=== PATIENT | female | born 1945 | race Hispanic/Latino ===

== ENCOUNTER → 2022-12-17 | Outpatient (CLI) | payer OTHER | END | disposition home or self-care (01) | LOC: RAH 12:57 | PROVIDERS: ATTEND Family Medicine | DX: R13.10 Dysphagia, unspecified (principal); R63.30 Feeding difficulties, unspecified | CPT/HCPCS: 74230; 92611 ==

== ENCOUNTER 2025-02-26 09:48 | Inpatient (IN) | payer MEDICARE, OTHER ==
[~2025-02-26] VITALS: Ht 160 cm; Wt 55.3 kg
[~2025-02-26 09:48] MED LIST: ASPI-1005 PO; ATOR40TA69 PO; BREX2TAB PO; CYAN-52 PO; MELA10CA11 PO; MIRT-22 PO; RIVA4.6T TP
--- NOTE | 2025-02-26 10:09 | ERN ---
ED Note History of Present Illness Stated Complaint: GENERAL WEAKNESS W/DIZZINESS AND LOSS OF APETITE. Chief Complaint: Weakness Time Seen by MD: 10:02 Dictation: PATIENT IS A 79-YEAR-OLD FEMALE COMING IN VIA EMS FROM HOME WITH COMPLAINTS OF PER THE DAUGHTER BEING CLAMMY AND GENERALIZED WEAKNESS APPROXIMATELY 1 HOUR PRIOR TO ARRIVAL. WHEN EMS ARRIVED THEY STATE THAT SHE WAS A LITTLE BIT ON THE SOMNOLENT SIDE CURRENTLY SHE IS TAKING SEROQUEL 25 MG P[address]O. FOR ALZHEIMER'S AND DAUGHTER SAID SHE GETS THIS WAY SOMETIMES. SHE HAS A HISTORY HAS A HISTORY OF BREAST CA. AT THIS TIME, SHE IS ALERT AND ORIENTED TIMES 2-3 ANSWERS QUESTIONS APPROPRIATELY OFFERS NO COMPLAINTS AT THIS TIME. STATES SHE WOULD JUST LIKE HER CHECKED OUT. Allergies: Coded Allergies: No Known Allergies (Unverified Allergy, Unknown, 02/05/24) No Known Drug Allergies (Unverified Allergy, Unknown, 02/05/24) Home Meds Active Scripts Atorvastatin Calcium (LIPITOR) 40 Mg Tablet, 40 MG PO HS, #30 TAB Prov:CARA GOMEZ BUSINESS MANAGEMENT CONSULTANT 02/07/24 Aspirin (ASPIRIN 81MG CHEW TAB) 81 Mg Tab.chew, 81 MG PO DAILY, #30 TAB.CHEW Prov:CARA GOMEZ BUSINESS MANAGEMENT CONSULTANT 02/07/24 Reported Medications Rivastigmine (Exelon 4.6 mg/24 Hr) 4.6 Mg/24 Hour Patch, 1 PATCH TP DAILYDINNER PRN for ANXIETY for 30 Days, #30 PATCH 0 Refills 02/07/24 Melatonin (Melatonin) 10 Mg Capsule, 1 CAP PO HS for sleep for 30 Days, #30 CAP 0 Refills 02/05/24 Brexpiprazole (Rexulti) 2 Mg Tablet, 1 TAB PO DAILY for 30 Days, #30 TAB 0 Refills 02/05/24 Cyanocobalamin (Vitamin B-12) (Vitamin B-12) 1,000 Mcg Tablet, 1 TAB PO DAILY for 30 Days, #30 TAB 0 Refills 02/05/24 Mirtazapine (Mirtazapine) 15 Mg Tablet, 1 TAB PO HS for 30 Days, #30 TAB 0 Refills 02/05/24 Past Medical History Past Medical History: Cancer, Dementia Additional Past Medical Hx: BREAST CA, ALZHEIMERS Surgical History: History: Not Applicable RN Note Reviewed/Agreed w/PFSH: Yes Review of System Dictation CONSTITUTIONAL: NEGATIVE EXCEPT FOR HPI GB W HEAD/FACE: NEGATIVE EXCEPT FOR HPI EENT: NEGATIVE EXCEPT FOR HPI RESPIRATORY: NEGATIVE EXCEPT FOR HPI GASTROINTESTINAL/ABDOMINAL: NEGATIVE EXCEPT FOR HPI GENITOURINARY: NEGATIVE EXCEPT FOR HPI MUSCULOSKELETAL: NEGATIVE EXCEPT FOR HPI INTEGUMENTARY: NEGATIVE EXCEPT FOR HPI NEUROLOGICAL/PSYCH: NEGATIVE EXCEPT FOR HPI HEMATOLOGIC/LYMPHATIC: NEGATIVE EXCEPT FOR HPI ALL SYSTEMS NEGATIVE, EXCEPT NOTED ABOVE. 13 POINT REVIEW OF SYSTEMS ASSESSED AND ALL NEGATIVE EXCEPT FOR ABOVE. Initial Vital Sign VS Vital Signs Date Time Temp Pulse Resp B/P (MAP) Pulse Ox O2 Delivery O2 Flow Rate FiO2 02/26/25 09:50 97.9 62 18 116/50 100 Nasal Cannula 3.0 02/26/25 10:16 21 Physical Exam Dictation VITAL SIGNS REVIEWED GENERAL APPEARANCE: ALERT, ORIENTED X 223, ANSWERING QUESTIONS APPROPRIATELY. SHE IS ALERT, MOVING ALL EXTREMITIES HEAD AND FACE: NON-TRAUMATIC. EYES: PERRL, PINK CONJUNCTIVAS, EYELID NO TRAUMA, ANTERIOR CHAMBER WITH ARCUS SENILIS. EARS: PINNAS INTACT AND NO SIGNS OF TRAUMA OR ERYTHEMA EAR CANALS CLEAR AND NO DISCHARGE TM NO ERYTHEMA NOSE: NO DISCHARGE, NO BLEEDING. OROPHARYNX: MOUTH NORMAL, TONGUE PINK, PHARYNX CLEAR,NO ERYTHEMA, TONSILS NO EXUDATES, NO ABSCESSES NOTED, MUCOUS MEMBRANE MOIST NECK: SUPPLE, NON-TENDER, NO THYROMEGALY, NO MASSES, NO JVD, NO BRUITS BREAST:DEFERRED CHEST:NO TENDERNESS, NO CREPITUS, NO PARADOXICAL MOVEMENT, NO RETRACTIONS LUNGS:CLEAR, WELL-VENTILATED, SYMMETRIC, NO RALES, NO WHEEZING, NO RHONCHI, NO STRIDOR, GOOD BREATH SOUNDS BILATERALLY HEART: REGULAR RATE, REGULAR RHYTHM, NO MURMUR, NO GALLOPS VASCULAR: NO PERIPHERAL EDEMA, ABDOMEN: SOFT, POSITIVE BOWEL SOUNDS, NONDISTENDED, NO GUARDING, NONTENDER, NO REBOUND, NO MASSES NO HEPATOMEGALY, NO SPLENOMEGALY, NO CRUZ'S SIGN, NO HERNIAS. RECTAL: DEFERRED GENITAL: DEFERRED NEUROLOGICAL: NORMAL SPEECH, MOTOR FUNCTION INTACT, SENSORY FUNCTION INTACT MUSCULOSKELETAL: NECK NONTENDER, FULL RANGE OF MOTION, BACK NONTENDER, FULL RANGE OF MOTION, EXTREMITIES: NONTENDER, FULL RANGE OF MOTION SKIN: COLOR PINK, DRY, NO TURGOR, NO RASH, NO LACERATIONS, NO ABRASIONS, NO CONTUSIONS. LYMPHATIC: DEFERRED Results (Laboratory/Radiology) Laboratory/Radiology Laboratory Tests Test 02/26/25 10:22 02/26/25 12:39 White Blood Count 6.4 K/uL (4.8-10.8) Red Blood Count 4.13 MIL/uL (4.00-5.50) Hemoglobin 12.3 g/dL (12.0-16.0) Hematocrit 39.8 % (36-48) Mean Corpuscular Volume 96.4 fL (79-99) Mean Corpuscular Hemoglobin 29.8 pg (27.0-33.0) Mean Corpuscular Hemoglobin Concent 30.9 g/dL (32.0-36.0) L Red Cell Distribution Width 13.1 % (11.0-15.5) Platelet Count 283 K/uL (130-400) Mean Platelet Volume 9.3 fL (7.5-10.5) Immature Granulocyte % (Auto) 0.5 % (0-1) Neutrophils (%) (Auto) 78.3 % (40.0-77.0) H Lymphocytes (%) (Auto) 13.2 % (21.0-51.0) L Monocytes (%) (Auto) 6.9 % (3.0-13.0) Eosinophils (%) (Auto) 0.8 % (0.0-8.0) Basophils (%) (Auto) 0.3 % (0.0-5.0) Neutrophils # (Auto) 5.0 K/uL (1.8-7.7) Lymphocytes # (Auto) 0.8 K/uL (1.0-4.8) L Monocytes # (Auto) 0.4 K/uL (0.1-1.0) Eosinophils # (Auto) 0.05 K/uL (0.00-0.70) Basophils # (Auto) 0.02 K/uL (0.00-0.20) Absolute Immature Granulocyte (auto 0.03 K/uL (0-1) Nucleated Red Blood Cells 0.0 % (0.0-0.19) Red Blood Cell Morphology See comments Sodium Level 140 mmol/L (136-145) Potassium Level 3.7 mmol/L (3.5-5.1) Chloride Level 106 mmol/L (101-111) Carbon Dioxide Level 28 mmol/L (21-32) Blood Urea Nitrogen 13 mg/dL (7-18) Creatinine 0.9 mg/dL (0.5-1.0) Glomerular Filtration Rate Calc 65 mL/min (>90) Random Glucose 87 mg/dL (70-105) Total Calcium 8.5 mg/dL (8.5-10.1) Magnesium Level 1.90 mg/dL (1.80-2.40) Troponin I High Sensitivity 365 ng/L (4-50) *H Urine Color LIGHT-YELLOW (YELLOW) Urine Appearance CLOUDY (CLEAR) H Urine pH 6.0 (5.0-8.0) Urine Specific [place] 1.010 (1.001-1.031) Urine Protein NEGATIVE mg/dL (NEGATIVE) Urine Glucose (UA) NEGATIVE mg/dL (NEGATIVE) Urine Ketones NEGATIVE mg/dL (NEGATIVE) Urine Occult Blood NEGATIVE (NEGATIVE) Urine Nitrate NEGATIVE (NEGATIVE) Urine Bilirubin NEGATIVE mg/dL (NEGATIVE) Urine Urobilinogen 0.2 mg/dL (0.2-1.0) Urine Leukocyte Esterase 500 [place]/uL (NEGATIVE) H 1030/CHEST X-RAY CLEAR NEGATIVE Labs Reviewed?: Yes EKG Comment: 1031/EKG SINUS RHYTHM/HEART RATE 62/OCCASIONAL PACS WITH A RIGHT BUNDLE BRANCH BLOCK. MINIMAL ST SEGMENT ELEVATION LATERAL LEADS. NO CHANGE FROM EKG ON 02/05/2024 ED Course ED Course Orders Procedure Category Date Status Time Cbc With Differential LAB 02/26/25 Complete 10:07 Chest 1vw RAD 02/26/25 Resulted 10:07 12 Lead Ekg Tracing- EKG 02/26/25 Logged Technical 10:07 Magnesium LAB 02/26/25 Complete 10:07 Troponin I High LAB 02/26/25 Complete Sensitivity 10:07 Urinalysis Profile LAB 02/26/25 In Process 10:07 Basic Metabolic Panel LAB 02/26/25 Complete 10:07 Culture Urine PETE 02/26/25 Logged 13:32 Vital Signs Date Time Temp Pulse Resp B/P (MAP) Pulse Ox O2 Delivery O2 Flow Rate FiO2 02/26/25 10:16 98.1 66 20 125/55 97 Room Air* 0 21 02/26/25 09:50 97.9 62 18 116/50 100 Nasal Cannula 3.0 1320/PATIENT REMAINS HEMODYNAMICALLY STABLE. SPOKE WITH DAUGHTER AT BEDSIDE SHE IS AWARE PATIENT WILL BE PUT IN FOR HIGH-RISK CHEST PAIN WITH A AN ELEVATED TROPONIN NO CHANGES ON EKG. PATIENT STATES SHE FEELS FINE.1335/ 1335/SPOKE WITHRIGOBERTO LINK AND REVIEWED LABS EKG AND SHE AGREED TO ADMIT. HEART Score Response (Comments) Value EKG: Repolarization changes 1 Age: > 65yrs (+2) 2 Risk Factors: 1-2 risk factors (+1) 1 Initial Troponin: >3x Normal Limit (+2) 2 Total 6 Medical Decision Making MDM MDM: DIFFERENTIAL DIAGNOSIS: ACS/AMI/ELECTROLYTE IMBALANCE DEHYDRATION/PNEUMONIA/BRONCHITIS RATIONALE: TESTS CONSIDERED AND ORDERED SECONDARY TO SHARED DECISION MAKING INCLUDE: LABS, ECG AND RADIOLOGY PREVIOUS OUTSIDE RECORDS REVIEWED: OLD ER VISITS. RISK OF COMPLICATION AND/OR MORBIDITY OR MORTALITY OF PATIENT MANAGEMENT: NONE MEDICATIONS-PER MEDICATION RECONCILIATION NEED FOR HOSPITALIZATION: PATIENT DOES MEET CRITERIA FOR HOSPITALIZATION. PATIENT WILL BE ADMITTED FOR HIGH-RISK CHEST PAIN AND ELEVATED TROPONIN. HE SHE WILL NEED CARDIAC ENZYMES AND EKG SERIALLY. NEED FOR EMERGENCY MAJOR/MINOR SURGERY: NO THERE ARE NO SOCIAL CONCERNS WITH THIS PATIENT. PRESCRIPTION DRUG MANAGEMENT PRESCRIPTIONS WILL INCLUDE SYMPTOMATIC CARE PATIENT'S PRIOR EXTERNAL MEDICAL RECORDS FROM OTHER ER VISITS WERE REVIEWED BY ME INDICATED. PRIOR TESTING AND RESULTS FROM PREVIOUS VISITS WERE REVIEWED. PRIOR TESTS WERE TAKEN INTO ACCOUNT WITH MEDICAL DECISION MAKING AND RESOURCE UTILIZATION, INDEPENDENT HISTORIAN/HISTORIANS WERE USED TO OBTAIN COMPLETE MEDICAL HISTORY. I INDEPENDENTLY INTERPRETED THE TEST THAT WERE PERFORMED, RESULTS WERE REVIEWED BY ME AND CONSIDERED FINDINGS ON RADIOLOGY IF ORDERED. MEDICAL MANAGEMENT AND EXAMINATION INTERPRETATION DISCUSSIONS WERE HAD BY ME W ITH OTHER QUALIFIED HEALTHCARE PROFESSIONALS INDICATED FOR THE PATIENT'S CARE. DX & DISP Disposition: Inpatient Departure Condition: Stable Referrals: SHAINA CAMERON M.D. (PCP) Time of Disposition: 13:22 I have reviewed the case, and I agree with, Diagnosis and Plan ANAYELI KUO Feb 26, 2025 10:09
[2025-02-26 10:37] LABS: IMMATURE GRANULOCYTE ABSOLUTE 0.03 K/uL (0-1); NUCLEATED RED BLOOD CELLS 0.0 % (0.0-0.19); PLATELET COUNT (AUTO) 283 K/uL (130-400); RED BLOOD CELL COUNT(AUTO) 4.13 MIL/uL (4.00-5.50); RED CELL DISTRIBUTION WIDTH 13.1 % (11.0-15.5); WHITE BLOOD COUNT (AUTO) 6.4 K/uL (4.8-10.8)
[2025-02-26 10:46] LABS: CREATININE 0.9 mg/dL (0.5-1.0); GLOMERULAR FILTR. RATE CALC 65.0 mL/min (>90); GLUCOSE,RANDOM 87.0 mg/dL (70-105); SODIUM SERUM 140.0 mmol/L (136-145); UREA NITROGEN, BLOOD 13.0 mg/dL (7-18)
--- NOTE | 2025-02-26 11:16 | HMCIMG ---
EXAM: CR Chest, 1 View. CLINICAL HISTORY: SHORTNESS A BREATH COMPARISON: None provided. FINDINGS: LUNGS: There is no mass, infiltrate, or acute pulmonary abnormality. PLEURAL SPACES: No pleural effusion or pneumothorax. MEDIASTINUM: Cardiac size and mediastinal contours within normal limits. BONES: No aggressive appearing osseous lesion seen. IMPRESSION: No acute cardiopulmonary pathology is evident. /[place]
[2025-02-26 13:23] LABS: APPEARANCE,URINE CLOUDY (CLEAR); GLUCOSE, URINE (UA) NEGATIVE (NEGATIVE); LEUKOCYTE ESTERASE ,URINE 500 Leu/uL (NEGATIVE); NITRATE,URINE NEGATIVE (NEGATIVE); OCCULT BLOOD,URINE NEGATIVE (NEGATIVE)
[2025-02-26 13:32] LABS: ADD UA MICROSCOPIC YES
[2025-02-26 13:39] LABS: SQUAMOUS EPITHELIAL CELL,UR RARE /HPF (0-2)
--- NOTE | 2025-02-26 13:45 | NUR ---
PT FAMILY MEMBER CAME UP TO ME TO NURSES STATION TO TELL ME THE PT WILL BE NEEDING A SITTER DUE TO HER DEMENTIA AND HER MEDICATIONS WELL. I ASKED "DO YOU HAVE A LIST OF HER MEDICATIONS" WHEN FAMILY MEMBER STATED SHE GAVE THE LIST OF HER MEDICATIONS TO "THE LADY." I ASKED WHAT LADY AND WAS NOT ABLE TO GET A STRAIGHT ANSWER. AT THIS TIME, PT HAD GOTTEN UP FROM BED TO LEAVE FACILITY AND STATING "I WANT TO GO HOME." THIS IS WHEN I HAD TOLD THE FAMILY MEMBER, "WE CANNOT KEEP HER HERE AGAINST HER WILL." WHEN TRYING TO ASSESS PT IF THEY ARE A&O, PT IS ABLE TO TELL ME HER NAME AND AND WHERE SHE IS AT.
--- NOTE | 2025-02-26 14:36 | EKG ---
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
--- NOTE | 2025-02-26 14:52 | NUR ---
CHARGE NURSE AND CONCESSION STAND ATTENDANT AWARE OF SITUATION AT THIS TIME.
--- NOTE | 2025-02-26 15:31 | HP ---
[facility] HISTORY & PHYSICAL Date Patient Seen: Feb 26, 2025 Time of Visit: 15:21 Supervising Physician: Verito Gusman MD Primary Care Physician: Nikki Bucio MD Outpatient Specialists: none Inpatient Consults: Tammy Ceedno (Cardiology) PROBLEM LIST: syncope NSTEMI Vertigo Acute complicated cystitis Dementia HPI: THis is a79yr old female with past medical HX pertinent for dementia who presented to the ED for evaluation of syncope. Per pts daughter pt has been having periods of dizziness in the last 2 weeks 2 major episodes. This morning pts daughter reports Mrs Garcia had her am meds which included 1 Seroquel 25mg po and shortly after that she complained of some dizziness. Then daughter reports she found her slumped over and passed out. Daughter also reports pt was clammy and diaphoretic. This prompted her to bring her to the ED for evaluation. Pt hemodynamically stable. afebrile and saturating 97% at RA. Neutrophils 78.3, chemistry with troponin of 365 CK 185. CHest XR: No acute cardiopulmonary pathology is evident. On assessment pt is awake alert pleasantly confused. Pt denies chest pain, palpitations or SOB. PAST MEDICAL HX: see above PAST SURGICAL HX: noncontributory SOCIAL HISTORY: No tobacco, ETOH, or illicit drug use Coded Allergies: No Known Allergies (Unverified Allergy, Unknown, 02/05/24) No Known Drug Allergies (Unverified Allergy, Unknown, 02/05/24) REVIEW OF SYSTEMS: 12 point ROS reviewed with patient. Pertinent positives mentioned above. Otherwise negative. PHYSICAL EXAM: GENERAL: alert, weak, awake oriented x 3 HEENT: EOMI, Sclera non icteric, moist mucosa NECK: Supple, no JVD, trachea midline LUNGS: Clear breath sounds bilaterally. No wheezes HEART: Regular rate and rhythm. Normal S1 and S2, without murmurs ABD: Abdomen soft, nontender. Bowel sounds present EXT: No clubbing cyanosis or edema NEURO: Alert and oriented to person, follows commands Vital Signs (last 8hr) Date Time Temp Pulse Resp B/P (MAP) Pulse Ox O2 Delivery O2 Flow Rate FiO2 02/26/25 10:16 98.1 66 20 125/55 97 Room Air* 0 21 02/26/25 09:50 97.9 62 18 116/50 100 Nasal Cannula 3.0 LABS: Hematology Labs: Test 02/26/25 10:22 Range/Units White Blood Count 6.4 4.8-10.8 K/uL Red Blood Count 4.13 4.00-5.50 MIL/uL Hemoglobin 12.3 12.0-16.0 g/dL Hematocrit 39.8 36-48 % Mean Corpuscular Volume 96.4 79-99 fL Mean Corpuscular Hemoglobin 29.8 27.0-33.0 pg Mean Corpuscular Hemoglobin Concent 30.9 L 32.0-36.0 g/dL Red Cell Distribution Width 13.1 11.0-15.5 % Platelet Count 283 130-400 K/uL Mean Platelet Volume 9.3 7.5-10.5 fL Immature Granulocyte % (Auto) 0.5 0-1 % Neutrophils (%) (Auto) 78.3 H 40.0-77.0 % Lymphocytes (%) (Auto) 13.2 L 21.0-51.0 % Monocytes (%) (Auto) 6.9 3.0-13.0 % Eosinophils (%) (Auto) 0.8 0.0-8.0 % Basophils (%) (Auto) 0.3 0.0-5.0 % Neutrophils # (Auto) 5.0 1.8-7.7 K/uL Lymphocytes # (Auto) 0.8 L 1.0-4.8 K/uL Monocytes # (Auto) 0.4 0.1-1.0 K/uL Eosinophils # (Auto) 0.05 0.00-0.70 K/uL Basophils # (Auto) 0.02 0.00-0.20 K/uL Absolute Immature Granulocyte (auto 0.03 0-1 K/uL Nucleated Red Blood Cells 0.0 0.0-0.19 % Red Blood Cell Morphology See comments Chemistry Labs: Test 02/26/25 10:22 Range/Units Sodium Level 140 136-145 mmol/L Potassium Level 3.7 3.5-5.1 mmol/L Chloride Level 106 101-111 mmol/L Carbon Dioxide Level 28 21-32 mmol/L Blood Urea Nitrogen 13 7-18 mg/dL Creatinine 0.9 0.5-1.0 mg/dL Glomerular Filtration Rate Calc 65 >90 mL/min Random Glucose 87 70-105 mg/dL Total Calcium 8.5 8.5-10.1 mg/dL Magnesium Level 1.90 1.80-2.40 mg/dL Troponin I High Sensitivity 365 *H 4-50 ng/L DIAGNOSTICS / RADIOLOGY RESULTS: [facility] [address] [place] [address] IMAGING REPORT Signed PATIENT: JACEK GARCIA MR#: [id number] : 1945 SEX: F AGE: 79 LOCATION: [facility] ORDER 1009 STATUS: REG ER REPORT#: [id number] SERVICE 1007 REASON: SHORTNESS A BREATH ORDERING PHYSICIAN: ANAYELI KUO PROCEDURE: CXR1VW - CHEST 1VW EXAM: CR Chest, 1 View. CLINICAL HISTORY: SHORTNESS A BREATH COMPARISON: None provided. FINDINGS: LUNGS: There is no mass, infiltrate, or acute pulmonary abnormality. PLEURAL SPACES: No pleural effusion or pneumothorax. MEDIASTINUM: Cardiac size and mediastinal contours within normal limits. BONES: No aggressive appearing osseous lesion seen. IMPRESSION: No acute cardiopulmonary pathology is evident. /[place] DICTATED BY: ZULEYMA CASNAOVA MD DATE: 02/26/251214 ELECTRONICALLY SIGNED BY: ZULEYMA CASANOVA MD DATE: 02/26/251214 ] PLAN Admit to [place] tele Consult cardiology for syncope 2D echo serial trop cardiac monitoring D-Dimer US shawna lower extremities If elevated D-Dimer CTA to rule out PE CT head orthostatic VS carotid US Urine culture Rocephin 2 grams q 24 hr x 10 days NEURO: Minimize central acting medications as possible. Maintain fall precautions, adequate lighting during the day PULMONARY: Supplemental 02 as needed. Maintain aspiration precautions at all times CARDIOVASCULAR: Follow hemodynamics. Vital signs per facility protocol GI & NUTRITION: Continue with nutritional support. Continue stool softeners and laxatives as needed. KIDNEYS & ELECTROLYTES: Strict monitoring of intake, output and overall fluid balance. Avoid nephrotoxic medications to the extent possible. Medications to be dosed according to renal function. Monitor electrolytes and replace as needed ENDOCRINE: Maintain blood glucose between 100-180 at all times. Hypoglycemia protocol in place INFECTIOUS DISEASE: Trend temperature, WBC and procalcitonin level Follow cultures, deescalate antibiotics as soon as possible. Panculture if new onset fever ONCOLOGY/HEMATOLOGY/COAGULATION: Monitor for s/s of bleeding Monitor hemoglobin, coagulation studies as needed SKIN: Pressure ulcer prevention per facility protocol Specialty mattress ORTHO/REHAB: Continue PT/OT Prophylaxis: Continue GI and DVT prophylaxis Code Status: Full Resuscitation Disposition: TBD Other: Total patient care time exceeds 35 minutes excluding all procedures. ATTESTATION BY PHYSICIAN I have evaluated the patient chart, medical records, and spoke with appropriate staff. I reviewed the documentation, medical decision making, and treatment plan as noted by the mid-level provider above. I agree with the findings and plan of care. RIGOBERTO Lopes MD AGACNP Feb 26, 2025 15:31
[2025-02-26 16:05] LABS: CREATINE KINASE, TOTAL 185.0 U/L (21-232)
[2025-02-26] MEDS: 0.9%NACL 1000ML 1,000 ML IV SCH (16:23)
[2025-02-26 16:30] VITALS: BP 115/50; PULSE 71
[2025-02-26 16:35] VITALS: BP 126/52; PULSE 66
[2025-02-26 16:40] VITALS: BP 139/61; PULSE 69
--- NOTE | 2025-02-26 16:50 | HMCIMG ---
EXAM: Ultrasound Duplex of the Bilateral Carotid and Vertebral Arteries. CLINICAL HISTORY: Syncope. TECHNIQUE: Real-time ultrasound of the bilateral carotid and vertebral arteries was performed using 2D barnard-scale, color Doppler, and spectral waveform analysis. COMPARISON: None provided. FINDINGS: RIGHT COMMON CAROTID ARTERY (CCA): Peak systolic velocity (PSV): 67 cm/s. Few calcified plaques are seen in the distal CCA without significant luminal narrowing or flow disturbance. RIGHT INTERNAL CAROTID ARTERY (ICA): PSV: 96 cm/s. ICA/CCA ratio: 1.4. No occlusion or hemodynamically significant stenosis. RIGHT EXTERNAL CAROTID ARTERY (ECA): PSV: 106 cm/s. Normal flow pattern. RIGHT VERTEBRAL ARTERY: PSV: 44 cm/s. Antegrade flow. LEFT COMMON CAROTID ARTERY (CCA): PSV: 57 cm/s. Normal wall appearance. No significant stenosis. LEFT INTERNAL CAROTID ARTERY (ICA): PSV: 80 cm/s. ICA/CCA ratio: 1.4. No occlusion or hemodynamically significant stenosis. LEFT EXTERNAL CAROTID ARTERY (ECA): PSV: 99 cm/s. Normal flow pattern. LEFT VERTEBRAL ARTERY: PSV: 64 cm/s. Antegrade flow. SOFT TISSUES: No incidental abnormality. IMPRESSION: 1. Mild atherosclerotic change with few calcified plaques in the distal right common carotid artery, without hemodynamically significant stenosis. 2. Normal flow velocities in bilateral internal and external carotid arteries. /[place]
[2025-02-26] MEDS: FAMOTIDINE 20MG TAB PO SCH (20:51)
--- NOTE | 2025-02-26 20:53 | HMCIMG ---
EXAM: CT Head Without IV contrast. CLINICAL HISTORY: SYNCOPE. TECHNIQUE: Axial computed tomography images of the head/brain without intravenous contrast. COMPARISON: None provided. FINDINGS: BRAIN: No evidence of acute hemorrhage. No mass lesion. No CT evidence for acute territorial infarct. No midline shift or extra-axial collections. Diffuse cerebral volume loss in the form of prominent cortical sulci and the ventricular system. Chronic small vessel ischemic changes in the form of diffuse bilateral periventricular hypodensities. Gliotic area in the left temporal region. VENTRICLES: No hydrocephalus. ORBITS: The orbits are unremarkable. SINUSES AND MASTOIDS: The paranasal sinuses and mastoid air cells are clear. BONES: No fracture. SOFT TISSUES: Unremarkable. IMPRESSION: No acute intracranial abnormality. Diffuse cerebral volume loss with chronic small vessel ischemic changes and gliotic area in the left temporal region. Recommend MRI brain for further evaluation if clinically warranted. /[place]
[2025-02-26 21:45] LABS: CREATINE KINASE, TOTAL 109.0 U/L (21-232)
[2025-02-26] MEDS: MELATONIN 5 MG TABLET PO ONE (22:35)
[2025-02-26] MEDS: ASPIRIN 81 MG EC TAB PO ONE (22:35)
[2025-02-26] MEDS ORDERED: IOHEXOL-350 50ML VIAL IV ONE (23:50)
[2025-02-27] VITALS (7 sets, daily range): BP systolic 120–170; BP diastolic 55–78; PULSE 63–68; RESP 16–19; TEMP 97.8–98.5; O2SAT 98
--- NOTE | 2025-02-27 00:16 | NUR ---
pending family consnt. pt unable to sigh on her own.
--- NOTE | 2025-02-27 00:26 | NUR ---
OBTAINED CONSENT OVER PHONE WITH DAUGHTER BRAYAN QUIGLEY FOR CT CHEST PE PROTOCOL
--- NOTE | 2025-02-27 01:02 | HMCIMG ---
EXAM: BILATERAL LOWER EXTREMITY VENOUS DOPPLER ULTRASOUND CLINICAL INFORMATION: Elevated D-dimer. TECHNIQUE: Grayscale, color Doppler, and spectral Doppler evaluation of the bilateral common femoral, femoral, profunda femoris, popliteal, posterior tibial, and peroneal veins with compression maneuvers and augmentation where feasible; great and small saphenous veins assessed as appropriate. COMPARISON: None provided. FINDINGS: DEEP VEINS (BILATERAL): Common femoral, femoral, profunda femoris, popliteal, posterior tibial, and peroneal veins are patent with complete compressibility where assessable and demonstrate normal color fill and phasic/spectral flow; no intraluminal thrombus is identified. SUPERFICIAL VEINS (BILATERAL): Great and small saphenous veins are patent and compressible without thrombus. SOFT TISSUES: No focal fluid collection is identified. IMPRESSION: * No evidence of deep venous thrombosis in either lower extremity on today???s examination. /[place]
--- NOTE | 2025-02-27 01:50 | HMCIMG ---
EXAM: CTA examination of the chest CLINICAL HISTORY: Rule out pulmonary embolism. TECHNIQUE: Thin collimated axial CTA images of the chest without and with contrast were obtained, with sagittal and coronal reformatted images also submitted. CT scan is done according to ALARA (As Low as Reasonably Achievable). COMPARISON: None provided. FINDINGS: No acute infiltrate or mass. Dependent groundglass opacities in the bilateral lung reyes. No pulmonary nodules. No pleural effusions. No pneumothorax. No pericardial effusion. The heart size is within normal limits. Calcific atherosclerotic disease in the thoracic aorta and coronary arteries. No thoracic aortic aneurysm or dissection. No filling defect or pulmonary thromboembolism. No axillary, supraclavicular, or mediastinal lymphadenopathy. No focal thyroid abnormality. Limited views of the upper abdomen demonstrate no abnormality. No acute or suspicious osseous abnormality. Multilevel mild thoracic spondylosis. IMPRESSION: No pulmonary arterial thromboembolism. No acute cardiopulmonary process. /[place]
[2025-02-27 06:37] LABS: IMMATURE GRANULOCYTE ABSOLUTE 0.02 K/uL (0-1); NUCLEATED RED BLOOD CELLS 0.0 % (0.0-0.19); PLATELET COUNT (AUTO) 237 K/uL (130-400); RED BLOOD CELL COUNT(AUTO) 3.60 MIL/uL (4.00-5.50); RED CELL DISTRIBUTION WIDTH 13.3 % (11.0-15.5); WHITE BLOOD COUNT (AUTO) 5.7 K/uL (4.8-10.8)
[2025-02-27 07:03] LABS: ASPARTATE AMINOTRANSFERASE 20.0 U/L (10-37); CREATINE KINASE, TOTAL 86.0 U/L (21-232); CREATININE 0.7 mg/dL (0.5-1.0); GLOMERULAR FILTR. RATE CALC 88.0 mL/min (>90); GLUCOSE,RANDOM 96.0 mg/dL (70-105); SODIUM SERUM 142.0 mmol/L (136-145); TOTAL PROTEIN, SERUM 6.1 g/dL (6.0-8.3); UREA NITROGEN, BLOOD 9.0 mg/dL (7-18)
--- NOTE | 2025-02-27 08:24 | PN ---
[facility] PROGRESS NOTE Date Patient Seen: Feb 27, 2025 Time of Visit: 08:24 Supervising Physician: Ronni Rosenthal MD Primary Care Physician: Nikki Bucio MD Outpatient Specialists: none Inpatient Consults: Tammy Cedeno (Cardiology) PROBLEM LIST: syncope NSTEMI Vertigo Acute complicated cystitis Dementia INTERVAL HISTORY: Pt is awake alert and oriented to name. She is pleasantly confused, which is her baseline per daughter. Patient has remained afebrile with a T-max of 98.4. She has been hemodynamically stable heart rate in the 60s respiratory rate of 18 saturating 98% on room air. H&H trending down 10.8/34.6 likely from hydration. Neutrophils have normalized. Chemistries troponin is stable 316 nanograms/liters this morning. Serious has been pretty much in the same range. Potassium was 3.4 corrected per protocol albumin of 2.8. 2D echo shows LVEF of greater 65% left ventricular diastolic function is normal trace aortic regurgitation estimated pulmonary pressures are normal. Pending Cardiology consult and recommendations. She continues with Rocephin 2 g IV Q 24 hours and tolerating it well. Likely discharge home in the next 24 hours if cardiology clears. REVIEW OF SYSTEMS: 12 point ROS reviewed with patient. Pertinent positives mentioned above. Otherwise negative. PHYSICAL EXAM: GENERAL: alert, weak, awake oriented x 3 HEENT: EOMI, Sclera non icteric, moist mucosa NECK: Supple, no JVD, trachea midline LUNGS: Clear breath sounds bilaterally. No wheezes HEART: Regular rate and rhythm. Normal S1 and S2, without murmurs ABD: Abdomen soft, nontender. Bowel sounds present EXT: No clubbing cyanosis or edema NEURO: Alert and oriented to person, follows commands Vital Signs Date Time Temp Pulse Resp B/P (MAP) Pulse Ox O2 Delivery O2 Flow Rate FiO2 02/27/25 20:10 98.2 63 18 170/65 98 Room Air 02/27/25 16:50 0.0 02/27/25 12:21 98 LABS: Hematology Labs: Test 02/27/25 06:13 02/26/25 10:22 Range/Units White Blood Count 5.7 4.8-10.8 K/uL Red Blood Count 3.60 L 4.00-5.50 MIL/uL Hemoglobin 10.8 L 12.0-16.0 g/dL Hematocrit 34.6 L 36-48 % Mean Corpuscular Volume 96.1 79-99 fL Mean Corpuscular Hemoglobin 30.0 27.0-33.0 pg Mean Corpuscular Hemoglobin Concent 31.2 L 32.0-36.0 g/dL Red Cell Distribution Width 13.3 11.0-15.5 % Platelet Count 237 130-400 K/uL Mean Platelet Volume 9.2 7.5-10.5 fL Immature Granulocyte % (Auto) 0.4 0-1 % Neutrophils (%) (Auto) 66.5 40.0-77.0 % Lymphocytes (%) (Auto) 23.6 21.0-51.0 % Monocytes (%) (Auto) 6.5 3.0-13.0 % Eosinophils (%) (Auto) 2.5 0.0-8.0 % Basophils (%) (Auto) 0.5 0.0-5.0 % Neutrophils # (Auto) 3.8 1.8-7.7 K/uL Lymphocytes # (Auto) 1.3 1.0-4.8 K/uL Monocytes # (Auto) 0.4 0.1-1.0 K/uL Eosinophils # (Auto) 0.14 0.00-0.70 K/uL Basophils # (Auto) 0.03 0.00-0.20 K/uL Absolute Immature Granulocyte (auto 0.02 0-1 K/uL Nucleated Red Blood Cells 0.0 0.0-0.19 % Red Blood Cell Morphology See comments Chemistry Labs: Test 02/27/25 06:13 Range/Units Sodium Level 142 136-145 mmol/L Potassium Level 3.4 L 3.5-5.1 mmol/L Chloride Level 111 101-111 mmol/L Carbon Dioxide Level 25 21-32 mmol/L Blood Urea Nitrogen 9 7-18 mg/dL Creatinine 0.7 0.5-1.0 mg/dL Glomerular Filtration Rate Calc 88 >90 mL/min Random Glucose 96 70-105 mg/dL Lactic Acid Level 1.6 0.8-2.5 mmol/L Total Calcium 7.8 L 8.5-10.1 mg/dL Magnesium Level 1.80 1.80-2.40 mg/dL Total Bilirubin 0.4 0.2-1.0 mg/dL Aspartate Amino Transf (AST/SGOT) 20 10-37 U/L Alanine Aminotransferase (ALT/SGPT) 19 12-78 U/L Alkaline Phosphatase 112 50-136 U/L Total Creatine Kinase 86 # 21-232 U/L Troponin I High Sensitivity 316.4 *H 4-50 ng/L B-Type Natriuretic Peptide 58 0-100 pg/mL Total Protein 6.1 6.0-8.3 g/dL Albumin 2.8 L 3.5-5.0 g/dL Coagulation Labs: Test 02/26/25 15:36 Range/Units D-Dimer Quantitative (PE/DVT) 755 *H 0-500 ng/mL DIAGNOSTICS / RADIOLOGY RESULTS: [ ] [place] [id number] [address] IMAGING REPORT Signed PATIENT: JACEK MALIK MR#: [id number] : 1945 SEX: F AGE: 79 LOCATION: [facility] ORDER [id number] STATUS: ADM IN REPORT#: [id number] SERVICE 0000 REASON: VALVULOPATHY ? PUL HTN? ORDERING PHYSICIAN: RIGOBERTO ENCISO PROCEDURE: ECHO CMP - ECHO 2-D COMPLETE APPROVED REPORT EXAM: Two-dimensional and M-mode echocardiogram with Doppler and color Doppler. INDICATION ICD: Assess for valvulopathy, rule out pulmonary hypertension 2D Dimensions RVDd 3.9 cm LVEF(%) 62.5 (>50%) LVED Vol(simp.) 81.0 mL IVSd 1.2 (0.7-1.1cm) FS(%) 33 % LVES Vol(simp.) 26.0 mL LVDd 4.3 (3.8-5.6cm) LA (2D) 3.3 (1.6-4.0cm) LVEF(%, simp.) 68 % PWd 1.0 (0.7-1.1cm) Ao Root(2D) 3.0 (2.0-3.7cm) LA ESV INDEX (BP) 35.53 mL/m2 IVSs 1.2 cm LVOT diam 2.3 (1.8-2.4cm) LVDs 2.9 (2.5-4.0cm) IVC diam 2.0 cm PWs 1.2 cm Deformation Strain Apical 4 -22.9 % Apical 2 -24.5 % Apical 3 -21.6 % Global Strain -23.0 % M-Mode Dimensions EPSS 0.4 cm LA (MM) 3.7 (1.6-4.0cm) Ao Root(MM) 3.4 (2.0-3.7cm) Aortic Valve AoV Vmax 2.1 m/s Ao Peak GR 18.4 mmHg LVOT Vmax 1.5 m/s AoV VTI 0.5 m Ao Mean GR 11.3 mmHg LVOT VTI 0.24 m TORI (VMAX) 2.89 cm2 Al P1/2T 512 ms TORI (VTI) 2.1 cm2 Mitral Valve MV E Vmax 61.3 cm/s DECEL Time 175 ms MV A Vmax 74.1 cm/s P 1/2 T 37 ms E/A ratio 0.8 MVA (PHT) 6.0 cm2 TDI E/E' Medial 11.4 Medial E' Peak V 5.40 cm/s Pulmonary Valve PV Vmax 1.0 m/s PV Mean GR 2.6 mmHg PV Peak GR 4.2 mmHg Tricuspid Valve TR Vmax 2.0 m/s RAP (EST) 3 mmHg RVSP 19.4 mmHg TR Peak GR 16.4 mmHg Left Ventricle The left ventricle is normal size. GLS -23.0% There is normal left ventricular wall thickness. The LVEF is > 65%. The left ventricular diastolic function is normal. Right Ventricle The right ventricle is normal size. The right ventricular systolic function is normal. Atria The left atrium size is normal. The right atrium size is normal. Aortic Valve Aortic valve is trileaflet and opens well. Trace aortic regurgitation is present. There is no aortic valvular stenosis. Mitral Valve The mitral valve is normal in structure. There is trace of mitral valve regurgitation noted. There is no mitral valve stenosis. Tricuspid Valve The tricuspid valve is normal in structure. There is trace of tricuspid valve regurgitation noted. Estimated pulmonary pressures are normal. Pulmonic Valve The pulmonary valve is normal in structure. There is no pulmonic valvular regurgitation. Great Vessels The aortic root is normal in size. The IVC is normal in size and collapses >50% with inspiration. Pericardium There is no pericardial effusion. Other Information Quality : Adequate Rhythm : NSR Conclusion The LVEF is > 65%. The left ventricular diastolic function is normal. Trace aortic regurgitation. Estimated pulmonary pressures are normal. DICTATED BY: JACQUELINE ODOM DO DATE: 02/27/25905 ELECTRONICALLY SIGNED BY: JACQUELINE ODOM DO DATE: 02/27/251958 PLAN Admit to [facility] tele Consult cardiology for syncope 2D echo performed serial trop - stable. cardiac monitoring, no dysrhythmias reported D-Dimer elevated DVT and PE negative CT head orthostatic VS carotid US Urine culture Rocephin 2 grams q 24 hr x 10 days cardiology consult. one to one sitter NEURO: Minimize central acting medications as possible. Maintain fall precautions, adequate lighting during the day PULMONARY: Supplemental 02 as needed. Maintain aspiration precautions at all times CARDIOVASCULAR: Follow hemodynamics. Vital signs per facility protocol GI & NUTRITION: Continue with nutritional support. Continue stool softeners and laxatives as needed. KIDNEYS & ELECTROLYTES: Strict monitoring of intake, output and overall fluid balance. Avoid nephrotoxic medications to the extent possible. Medications to be dosed according to renal function. Monitor electrolytes and replace as needed ENDOCRINE: Maintain blood glucose between 100-180 at all times. Hypoglycemia protocol in place INFECTIOUS DISEASE: Trend temperature, WBC and procalcitonin level Follow cultures, deescalate antibiotics as soon as possible. Panculture if new onset fever ONCOLOGY/HEMATOLOGY/COAGULATION: Monitor for s/s of bleeding Monitor hemoglobin, coagulation studies as needed SKIN: Pressure ulcer prevention per facility protocol Specialty mattress ORTHO/REHAB: Continue PT/OT Prophylaxis: Continue GI and DVT prophylaxis Code Status: Full Resuscitation Disposition: TBD Other: Total patient care time exceeds 35 minutes excluding all procedures. ATTESTATION BY PHYSICIAN I reviewed the documentation, medical decision making, and treatment plan as noted by the mid-level provider above. I agree with the findings and plan of care. Ronni Rosenthal MD, [facility] Feb 27, 2025 08:24
[2025-02-27] MEDS: ASPIRIN 81 MG EC TAB PO SCH (08:31)
[2025-02-27] MEDS: ENOXAPARIN SODIUM 40 MG/0.4 ML SYRINGE SQ SCH (08:32)
--- NOTE | 2025-02-27 11:37 | NUR ---
DCP:HOME Pt currently lives at home with her daughter Annmarie Hendricks [phone] but spoke with Abby Sierra (daughter) [phone] who was at bedside. Daughter states that pt has dementia so they try to ensure that she always has someone with pt. Pt does not use any DME, home health, or provider services. Daughter states that they do have a private childcare provider that they use occasionally for 3-4 hrs whenever they need to run errands. PCP is Nikki Tapia. At DC pt will want to go home and family can assist with transportation.
[2025-02-27] MEDS ORDERED: QUET50TA PO (18:39)
--- NOTE | 2025-02-27 19:59 | HMCSR ---
APPROVED REPORT EXAM: Two-dimensional and M-mode echocardiogram with Doppler and color Doppler. INDICATION ICD: Assess for valvulopathy, rule out pulmonary hypertension 2D Dimensions RVDd 3.9 cm LVEF(%) 62.5 (>50%) LVED Vol(simp.) 81.0 mL IVSd 1.2 (0.7-1.1cm) FS(%) 33 % LVES Vol(simp.) 26.0 mL LVDd 4.3 (3.8-5.6cm) LA (2D) 3.3 (1.6-4.0cm) LVEF(%, simp.) 68 % PWd 1.0 (0.7-1.1cm) Ao Root(2D) 3.0 (2.0-3.7cm) LA ESV INDEX (BP) 35.53 mL/m2 IVSs 1.2 cm LVOT diam 2.3 (1.8-2.4cm) LVDs 2.9 (2.5-4.0cm) IVC diam 2.0 cm PWs 1.2 cm Deformation Strain Apical 4 -22.9 % Apical 2 -24.5 % Apical 3 -21.6 % Global Strain -23.0 % M-Mode Dimensions EPSS 0.4 cm LA (MM) 3.7 (1.6-4.0cm) Ao Root(MM) 3.4 (2.0-3.7cm) Aortic Valve AoV Vmax 2.1 m/s Ao Peak GR 18.4 mmHg LVOT Vmax 1.5 m/s AoV VTI 0.5 m Ao Mean GR 11.3 mmHg LVOT VTI 0.24 m TORI (VMAX) 2.89 cm2 Al P1/2T 512 ms TORI (VTI) 2.1 cm2 Mitral Valve MV E Vmax 61.3 cm/s DECEL Time 175 ms MV A Vmax 74.1 cm/s P 1/2 T 37 ms E/A ratio 0.8 MVA (PHT) 6.0 cm2 TDI E/E' Medial 11.4 Medial E' Peak V 5.40 cm/s Pulmonary Valve PV Vmax 1.0 m/s PV Mean GR 2.6 mmHg PV Peak GR 4.2 mmHg Tricuspid Valve TR Vmax 2.0 m/s RAP (EST) 3 mmHg RVSP 19.4 mmHg TR Peak GR 16.4 mmHg Left Ventricle The left ventricle is normal size. GLS -23.0% There is normal left ventricular wall thickness. The LVEF is > 65%. The left ventricular diastolic function is normal. Right Ventricle The right ventricle is normal size. The right ventricular systolic function is normal. Atria The left atrium size is normal. The right atrium size is normal. Aortic Valve Aortic valve is trileaflet and opens well. Trace aortic regurgitation is present. There is no aortic valvular stenosis. Mitral Valve The mitral valve is normal in structure. There is trace of mitral valve regurgitation noted. There is no mitral valve stenosis. Tricuspid Valve The tricuspid valve is normal in structure. There is trace of tricuspid valve regurgitation noted. Estimated pulmonary pressures are normal. Pulmonic Valve The pulmonary valve is normal in structure. There is no pulmonic valvular regurgitation. Great Vessels The aortic root is normal in size. The IVC is normal in size and collapses >50% with inspiration. Pericardium There is no pericardial effusion. Other Information Quality : Adequate Rhythm : NSR Conclusion The LVEF is > 65%. The left ventricular diastolic function is normal. Trace aortic regurgitation. Estimated pulmonary pressures are normal.
--- NOTE | 2025-02-27 21:36 | CONS ---
CONSULT NOTE: CARDIOLOGY Reason for consult: Elevated troponin HPI/story at presentation: This is a pleasant 79-year-old female with past medical history who presented with complaints of a syncopal spell, found by family. Cardiology consulted because of syncope as well as elevated troponin at presentation. Echo was normal Past medical history: See below Allergies, Meds See chart Review of systems Review of Systems Constitutional: Negative for chills and fever. HENT: Negative for ear discharge and ear pain. Eyes: Negative for photophobia and discharge. Respiratory: Negative for cough, sputum production and stridor. Cardiovascular: Negative for chest pain and palpitations. Gastrointestinal: Negative for diarrhea and vomiting. Genitourinary: Negative for frequency. Musculoskeletal: Negative for myalgias. Skin: Negative for rash. Neurological: Negative for focal weakness and seizures. Endo/Heme/Allergies: Negative for polydipsia. Psychiatric/Behavioral: Negative for hallucinations. Vitals see chart PHYSICAL EXAMINATION GENERAL: The patient is CONFUSED, 02/27/2025 HEENT: Nonicteric sclerae, non traumatic HEART: Regular rate and rhythm with no murmurs LUNGS: Clear to auscultation bilaterally ABDOMEN: No acute issues, non tender GENITAL, RECTAL: deferred SKIN: No rash NEUROLOGIC: NFND EXTREMITIES: No edema ASSESSMENT ELEVATED TROPONIN On presentation Troponin greater than 300 Unable to get history from patient's given poor mental status SYNCOPE Presentation, seen by family, Patient stopped over Echocardiogram, normal, 02/2025 Orthostatic vitals, 02/2025 DEMENTIA chronic CORE MEASURES pending OTHER MEDICAL PROBLEMS Reviewed PLAN 02/27/2025 patient with syncope presentation, poor historian, echo was normal, echo with orthostatic vitals have been ordered and pending. Will consider monitor/loop recorder discharge depending on what she will be able to tolerate given underlying dementia to assess for possible rhythm issues as possible source of symptoms. No family at bedside at this time, has a sitter. Advanced imaging, not a good candidate for ischemic evaluation at this time. Seen and examined 02/27/2025 at around 8 p.m. ATTESTATION I was involved substantially in the care of this patient Number and complexity of problems addressed: 1 acute illness with systemic features Amount and or complexity of data Review of prior external note(s) from each unique source: 2+ Ordering of each unique test : 0 Review of the result(s) of each unique test: 2+ Assessment requiring an independent historian(s): No Independent interpretation of test performed by another MD/QHCP/appropriate source (not separately reported) : No Discussion of management or test interpretation with external MD/QHCP/appropriate source (not separately reported) : No Risk status (cardiac, billing related): Moderate MARIFER PHILLIPS MD Feb 27, 2025 21:36
[2025-02-28] VITALS (9 sets, daily range): BP systolic 130–164; BP diastolic 45–79; PULSE 54–73; RESP 16–18; TEMP 97.3–98.1; O2SAT 97–99
[2025-02-28 06:02] LABS: IMMATURE GRANULOCYTE ABSOLUTE 0.03 K/uL (0-1); NUCLEATED RED BLOOD CELLS 0.0 % (0.0-0.19); PLATELET COUNT (AUTO) 222 K/uL (130-400); RED BLOOD CELL COUNT(AUTO) 3.74 MIL/uL (4.00-5.50); RED CELL DISTRIBUTION WIDTH 12.9 % (11.0-15.5); WHITE BLOOD COUNT (AUTO) 6.9 K/uL (4.8-10.8)
[2025-02-28 06:22] LABS: ASPARTATE AMINOTRANSFERASE 27.0 U/L (10-37); CREATININE 0.8 mg/dL (0.5-1.0); GLOMERULAR FILTR. RATE CALC 75.0 mL/min (>90); GLUCOSE,RANDOM 105.0 mg/dL (70-105); SODIUM SERUM 143.0 mmol/L (136-145); TOTAL PROTEIN, SERUM 6.5 g/dL (6.0-8.3); UREA NITROGEN, BLOOD 7.0 mg/dL (7-18)
--- NOTE | 2025-02-28 18:21 | NUR ---
Attempted PT eval, Pt pleasant and confused with 1:1 sitter. No family present. KITCHEN STEWARD/STEWARDESS reports and PT verifies that patient walks in room and to restroom , transfers at [facility] and does not need AD. Pt is supposed to DC today. PT to endorse to nursing.
--- NOTE | 2025-02-28 21:37 | PN ---
[facility] PROGRESS NOTE Date Patient Seen: Feb 28, 2025 Time of Visit: 21:35 Supervising Physician: Dr. Stanislav Restrepo Primary Care Physician: Nikki Bucio MD Outpatient Specialists: none Inpatient Consults: Tammy Cedeno (Cardiology) PROBLEM LIST: syncope NSTEMI Vertigo Acute complicated cystitis Dementia INTERVAL HISTORY: Pt is awake alert and oriented to name. She is pleasantly confused, which is her baseline per daughter. Patient has remained afebrile with a T-max of 98.4. She has been hemodynamically stable heart rate in the 60s respiratory rate of 18 saturating 98% on room air. H&H trending down 10.8/34.6 likely from hydration. Neutrophils have normalized. Chemistries troponin is stable 316 nanograms/liters this morning. Serious has been pretty much in the same range. Potassium was 3.4 corrected per protocol albumin of 2.8. 2D echo shows LVEF of greater 65% left ventricular diastolic function is normal trace aortic regurgitation estimated pulmonary pressures are normal. Pending Cardiology consult and recommendations. She continues with Rocephin 2 g IV Q 24 hours and tolerating it well. Likely discharge home in the next 24 hours if cardiology clears. 02/28- examined and seen the patient during my assessment resting in bed in a high Crooks's position with a 1-1 sitter present patient's daughter DD is there. Reviewed and discussed with patient and daughter at bedside 1st vital: Blood pressure 145/79, respirations 18, pulse 71, temperature 97.5 and oxygen saturation 98% on room air, FiO2 21. Reviewed laboratory results WBC 6.9, hemoglobin 11.1, hematocrit 35.1%, platelets 222, potassium 3.3, BUN seven, creatinine 0.8, GFR 75, magnesium 1.9. Electrolyte replacement protocol in place + basic order for potassium chloride 10 mEq use p.o. b.i.d.. Afebrile. Patient denies shortness or breath, fever, chills, palpations, constipation and diarrhea. Awaiting to see if Cardiology wants patient pointed discharged to have a life vest on. Further orders per course of stay. A.m. labs. REVIEW OF SYSTEMS: 12 point ROS reviewed with patient. Pertinent positives mentioned above. Otherwise negative. PHYSICAL EXAM: GENERAL: alert, weak, awake oriented x 3 HEENT: EOMI, Sclera non icteric, moist mucosa NECK: Supple, no JVD, trachea midline LUNGS: Clear breath sounds bilaterally. No wheezes HEART: Regular rate and rhythm. Normal S1 and S2, without murmurs ABD: Abdomen soft, nontender. Bowel sounds present EXT: No clubbing cyanosis or edema NEURO: Alert and oriented to person, follows commands Vital Signs (last 8hr) Date Time Temp Pulse Resp B/P (MAP) Pulse Ox O2 Delivery O2 Flow Rate FiO2 02/28/25 20:10 97.9 69 18 152/62 97 Room Air 02/28/25 16:00 97.5 71 18 145/79 98 Room Air LABS: Hematology Labs: Test 02/28/25 05:56 Range/Units White Blood Count 6.9 4.8-10.8 K/uL Red Blood Count 3.74 L 4.00-5.50 MIL/uL Hemoglobin 11.1 L 12.0-16.0 g/dL Hematocrit 35.1 L 36-48 % Mean Corpuscular Volume 93.9 79-99 fL Mean Corpuscular Hemoglobin 29.7 27.0-33.0 pg Mean Corpuscular Hemoglobin Concent 31.6 L 32.0-36.0 g/dL Red Cell Distribution Width 12.9 11.0-15.5 % Platelet Count 222 130-400 K/uL Mean Platelet Volume 9.1 7.5-10.5 fL Immature Granulocyte % (Auto) 0.4 0-1 % Neutrophils (%) (Auto) 66.7 40.0-77.0 % Lymphocytes (%) (Auto) 21.8 21.0-51.0 % Monocytes (%) (Auto) 8.4 3.0-13.0 % Eosinophils (%) (Auto) 2.3 0.0-8.0 % Basophils (%) (Auto) 0.4 0.0-5.0 % Neutrophils # (Auto) 4.6 1.8-7.7 K/uL Lymphocytes # (Auto) 1.5 1.0-4.8 K/uL Monocytes # (Auto) 0.6 0.1-1.0 K/uL Eosinophils # (Auto) 0.16 0.00-0.70 K/uL Basophils # (Auto) 0.03 0.00-0.20 K/uL Absolute Immature Granulocyte (auto 0.03 0-1 K/uL Nucleated Red Blood Cells 0.0 0.0-0.19 % Chemistry Labs: Test 02/28/25 05:56 02/27/25 06:13 Range/Units Sodium Level 143 136-145 mmol/L Potassium Level 3.3 L 3.5-5.1 mmol/L Chloride Level 107 101-111 mmol/L Carbon Dioxide Level 28 21-32 mmol/L Blood Urea Nitrogen 7 7-18 mg/dL Creatinine 0.8 0.5-1.0 mg/dL Glomerular Filtration Rate Calc 75 >90 mL/min Random Glucose 105 70-105 mg/dL Lactic Acid Level 1.3 0.8-2.5 mmol/L Total Calcium 8.4 L 8.5-10.1 mg/dL Magnesium Level 1.90 1.80-2.40 mg/dL Total Bilirubin 0.3 # 0.2-1.0 mg/dL Aspartate Amino Transf (AST/SGOT) 27 10-37 U/L Alanine Aminotransferase (ALT/SGPT) 27 # 12-78 U/L Alkaline Phosphatase 131 50-136 U/L Total Protein 6.5 6.0-8.3 g/dL Albumin 3.0 L 3.5-5.0 g/dL Total Creatine Kinase 86 # 21-232 U/L Troponin I High Sensitivity 316.4 *H 4-50 ng/L B-Type Natriuretic Peptide 58 0-100 pg/mL DIAGNOSTICS / RADIOLOGY RESULTS: [ ] PLAN Admit to [facility] tele Consult cardiology for syncope 2D echo performed serial trop - stable. cardiac monitoring, no dysrhythmias reported D-Dimer elevated DVT and PE negative CT head orthostatic VS carotid US Urine culture Rocephin 2 grams q 24 hr x 10 days cardiology consult. one to one sitter NEURO: Minimize central acting medications as possible. Maintain fall precautions, adequate lighting during the day PULMONARY: Supplemental 02 as needed. Maintain aspiration precautions at all times CARDIOVASCULAR: Follow hemodynamics. Vital signs per facility protocol GI & NUTRITION: Continue with nutritional support. Continue stool softeners and laxatives as needed. KIDNEYS & ELECTROLYTES: Strict monitoring of intake, output and overall fluid balance. Avoid nephrotoxic medications to the extent possible. Medications to be dosed according to renal function. Monitor electrolytes and replace as needed ENDOCRINE: Maintain blood glucose between 100-180 at all times. Hypoglycemia protocol in place INFECTIOUS DISEASE: Trend temperature, WBC and procalcitonin level Follow cultures, deescalate antibiotics as soon as possible. Panculture if new onset fever ONCOLOGY/HEMATOLOGY/COAGULATION: Monitor for s/s of bleeding Monitor hemoglobin, coagulation studies as needed SKIN: Pressure ulcer prevention per facility protocol Specialty mattress ORTHO/REHAB: Continue PT/OT Prophylaxis: Continue GI and DVT prophylaxis Code Status: Full Resuscitation Disposition: TBD Other: Total patient care time exceeds 35 minutes excluding all procedures. ELIDA APARICIO AGACNP Feb 28, 2025 21:37
--- NOTE | 2025-02-28 21:57 | PN ---
CARDIOLOGY Reason for consult: Elevated troponin HPI/story at presentation: This is a pleasant 79-year-old female with past medical history who presented with complaints of a syncopal spell, found by family. Cardiology consulted because of syncope as well as elevated troponin at presentation. Echo was normal Past medical history: See below Allergies, Meds See chart Review of systems Review of Systems Constitutional: Negative for chills and fever. HENT: Negative for ear discharge and ear pain. Eyes: Negative for photophobia and discharge. Respiratory: Negative for cough, sputum production and stridor. Cardiovascular: Negative for chest pain and palpitations. Gastrointestinal: Negative for diarrhea and vomiting. Genitourinary: Negative for frequency. Musculoskeletal: Negative for myalgias. Skin: Negative for rash. Neurological: Negative for focal weakness and seizures. Endo/Heme/Allergies: Negative for polydipsia. Psychiatric/Behavioral: Negative for hallucinations. Vitals see chart PHYSICAL EXAMINATION GENERAL: The patient is CONFUSED, 02/27/2025 HEENT: Nonicteric sclerae, non traumatic HEART: Regular rate and rhythm with no murmurs LUNGS: Clear to auscultation bilaterally ABDOMEN: No acute issues, non tender GENITAL, RECTAL: deferred SKIN: No rash NEUROLOGIC: NFND EXTREMITIES: No edema ASSESSMENT ELEVATED TROPONIN On presentation Troponin greater than 300 Unable to get history from patient's given poor mental status SYNCOPE Presentation, seen by family, Patient stopped over Echocardiogram, normal, 02/2025 Orthostatic vitals, 02/2025 DEMENTIA chronic CORE MEASURES pending OTHER MEDICAL PROBLEMS Reviewed PLAN 02/27/2025 patient with syncope presentation, poor historian, echo was normal, echo with orthostatic vitals have been ordered and pending. Will consider monitor/loop recorder discharge depending on what she will be able to tolerate given underlying dementia to assess for possible rhythm issues as possible source of symptoms. No family at bedside at this time, has a sitter. Advanced imaging, not a good candidate for ischemic evaluation at this time. Seen and examined 02/27/2025 at around 8 p.m. 02/28/25 remains confused, no chest pain, will address plan of care with family, likely conservative management given comorbidities seen and examined 02/28/25 at around 8 PM ATTESTATION I was involved substantially in the care of this patient Number and complexity of problems addressed: 1 acute illness with systemic features Amount and or complexity of data Review of prior external note(s) from each unique source: 2+ Ordering of each unique test : 0 Review of the result(s) of each unique test: 2+ Assessment requiring an independent historian(s): No Independent interpretation of test performed by another MD/QHCP/appropriate source (not separately reported) : No Discussion of management or test interpretation with external MD/TORREYP/appropriate source (not separately reported) : No Risk status (cardiac, billing related): Moderate Vitals/Labs Vital Signs Date Time Temp Pulse Resp B/P (MAP) Pulse Ox O2 Delivery O2 Flow Rate FiO2 02/28/25 20:10 97.9 69 18 152/62 97 Room Air 02/28/25 07:58 0 21 Laboratory Tests 02/28/25 05:56 Medications Current Medications Acetaminophen 650 mg Q4H PRN PO; Start 02/26/25 at 15:30; Stop 03/28/25 at 15:29 Ondansetron HCl 4 mg Q6H PRN IV; Start 02/26/25 at 15:30; Stop 03/28/25 at 15:29 Famotidine 20 mg Q48H PO Last administered on 02/28/25at 21:31; Start 02/26/25 at 21:00; Stop 03/28/25 at 20:59 Enoxaparin Sodium 40 mg DAILY SQ Last administered on 02/28/25at 07:59; Start 02/27/25 at 09:00; Stop 03/29/25 at 08:59 Ceftriaxone Sodium 2 gm Q24H IVPB Last administered on 02/28/25at 16:35; Start 02/26/25 at 15:30; Stop 03/08/25 at 15:29 Sodium Chloride 1,000 ml @ 75 mls/hr [id number] IV Last administered on 02/27/25at 05:20; Start 02/26/25 at 15:30; Stop 02/27/25 at 15:29; Status DC Aspirin 81 mg ONCE ONCE PO Last administered on 02/26/25at 22:35; Start 02/26/25 at 22:00; Stop 02/26/25 at 22:01; Status DC Aspirin 81 mg DAILY PO Last administered on 02/28/25at 07:58; Start 02/27/25 at 09:00; Stop 03/29/25 at 08:59 Atorvastatin Calcium 40 mg HS PO Last administered on 02/28/25at 21:31; Start 02/27/25 at 21:00; Stop 03/29/25 at 20:59 Atorvastatin Calcium 40 mg ONCE ONCE PO Last administered on 02/26/25at 22:35; Start 02/26/25 at 22:00; Stop 02/26/25 at 22:01; Status DC Melatonin 10 mg ONCE ONCE PO Last administered on 02/26/25at 22:35; Start 02/26/25 at 22:00; Stop 02/26/25 at 22:01; Status DC Iohexol 50 ml STK-MED ONCE IV; Start 02/26/25 at 23:50; Stop 02/26/25 at 23:50; Status DC Quetiapine Fumarate 50 mg HS PO Last administered on 02/28/25at 21:31; Start 02/28/25 at 21:00; Stop 03/30/25 at 20:59 Quetiapine Fumarate 25 mg ONCE ONCE PO Last administered on 02/27/25at 22:34; Start 02/27/25 at 22:00; Stop 02/27/25 at 22:01; Status DC Potassium Chloride 20 meq DAILY PO; Start 03/01/25 at 09:00; Stop 03/31/25 at 08:59 MARIFER PHILLIPS MD Feb 28, 2025 21:57
[2025-03-01] VITALS (10 sets, daily range): BP systolic 121–160; BP diastolic 49–107; PULSE 60–88; RESP 16–18; TEMP 97.2–98.2; O2SAT 94–98
[2025-03-01 07:15] LABS: IMMATURE GRANULOCYTE ABSOLUTE 0.01 K/uL (0-1); NUCLEATED RED BLOOD CELLS 0.0 % (0.0-0.19); PLATELET COUNT (AUTO) 237 K/uL (130-400); RED BLOOD CELL COUNT(AUTO) 3.84 MIL/uL (4.00-5.50); RED CELL DISTRIBUTION WIDTH 12.7 % (11.0-15.5); WHITE BLOOD COUNT (AUTO) 6.1 K/uL (4.8-10.8)
[2025-03-01 07:54] LABS: ASPARTATE AMINOTRANSFERASE 25.0 U/L (10-37); CREATININE 0.8 mg/dL (0.5-1.0); GLOMERULAR FILTR. RATE CALC 75.0 mL/min (>90); GLUCOSE,RANDOM 100.0 mg/dL (70-105); SODIUM SERUM 144.0 mmol/L (136-145); TOTAL PROTEIN, SERUM 6.8 g/dL (6.0-8.3); UREA NITROGEN, BLOOD 10.0 mg/dL (7-18)
[2025-03-01] MEDS: PoTASSium chloRIDE 20MEQ ER 20 MEQ ERTAB PO SCH (09:00)
--- NOTE | 2025-03-01 14:31 | NUR ---
Discharge Update: Pending abx recommendations for positive urine culture.
--- NOTE | 2025-03-01 18:38 | PN ---
[facility] PROGRESS NOTE Date Patient Seen: Mar 01, 2025 Time of Visit: 18:38 Supervising Physician: Dr. Stanislav Restrepo Primary Care Physician: Nikki Bucio MD Outpatient Specialists: none Inpatient Consults: Tammy Cedeno (Cardiology) PROBLEM LIST: syncope NSTEMI Vertigo Acute complicated cystitis Dementia INTERVAL HISTORY: Pt is awake alert and oriented to name. She is pleasantly confused, which is her baseline per daughter. Patient has remained afebrile with a T-max of 98.4. She has been hemodynamically stable heart rate in the 60s respiratory rate of 18 saturating 98% on room air. H&H trending down 10.8/34.6 likely from hydration. Neutrophils have normalized. Chemistries troponin is stable 316 nanograms/liters this morning. Serious has been pretty much in the same range. Potassium was 3.4 corrected per protocol albumin of 2.8. 2D echo shows LVEF of greater 65% left ventricular diastolic function is normal trace aortic regurgitation estimated pulmonary pressures are normal. Pending Cardiology consult and recommendations. She continues with Rocephin 2 g IV Q 24 hours and tolerating it well. Likely discharge home in the next 24 hours if cardiology clears. 02/28- examined and seen the patient during my assessment resting in bed in a high Crooks's position with a 1-1 sitter present patient's daughter DD is there. Reviewed and discussed with patient and daughter at bedside 1st vital: Blood pressure 145/79, respirations 18, pulse 71, temperature 97.5 and oxygen saturation 98% on room air, FiO2 21. Reviewed laboratory results WBC 6.9, hemoglobin 11.1, hematocrit 35.1%, platelets 222, potassium 3.3, BUN seven, creatinine 0.8, GFR 75, magnesium 1.9. Electrolyte replacement protocol in place + basic order for potassium chloride 10 mEq use p.o. b.i.d.. Afebrile. Patient denies shortness or breath, fever, chills, palpations, constipation and diarrhea. Awaiting to see if Cardiology wants patient pointed discharged to have a life vest on. Further orders per course of stay. A.m. labs. 03/01-patient seen and assessed while resting in bed, patient is impulsive has a sitter for 1-1 safe environment. No family members are present. Accompanied by patient's bedside nurse. Hemodynamically stable. Afebrile. Patient denies chest pain, shortness of breath, fever, chills, nauseousness and constipation currently. Patient's daughters were updated by specialists drying unit felting machine operator's, they said they needed time to think about the situation and we will make a decision tomorrow if they approve he will be a diagnostic tests to clinically workup the patient's non-STEMI if not then the patient will be discharged to home treated in the outpatient environment and follow up with primary care provider. Further orders per course of stay. A.m. labs ordered. REVIEW OF SYSTEMS: 12 point ROS reviewed with patient. Pertinent positives mentioned above. Otherwise negative. PHYSICAL EXAM: GENERAL: alert, weak, awake oriented x 3 HEENT: EOMI, Sclera non icteric, moist mucosa NECK: Supple, no JVD, trachea midline LUNGS: Clear breath sounds bilaterally. No wheezes HEART: Regular rate and rhythm. Normal S1 and S2, without murmurs ABD: Abdomen soft, nontender. Bowel sounds present EXT: No clubbing cyanosis or edema NEURO: Alert and oriented to person, follows commands Vital Signs (last 8hr) Date Time Temp Pulse Resp B/P (MAP) Pulse Ox O2 Delivery O2 Flow Rate FiO2 03/01/25 16:24 98.1 65 18 158/49 98 Room Air 03/01/25 11:52 85 160/92 99 03/01/25 11:50 68 151/68 99 03/01/25 11:49 97.2 70 18 147/63 99 Room Air LABS: Hematology Labs: Test 03/01/25 06:45 Range/Units White Blood Count 6.1 4.8-10.8 K/uL Red Blood Count 3.84 L 4.00-5.50 MIL/uL Hemoglobin 11.5 L 12.0-16.0 g/dL Hematocrit 35.4 L 36-48 % Mean Corpuscular Volume 92.2 79-99 fL Mean Corpuscular Hemoglobin 29.9 27.0-33.0 pg Mean Corpuscular Hemoglobin Concent 32.5 32.0-36.0 g/dL Red Cell Distribution Width 12.7 11.0-15.5 % Platelet Count 237 130-400 K/uL Mean Platelet Volume 9.4 7.5-10.5 fL Immature Granulocyte % (Auto) 0.2 0-1 % Neutrophils (%) (Auto) 66.0 40.0-77.0 % Lymphocytes (%) (Auto) 20.1 L 21.0-51.0 % Monocytes (%) (Auto) 10.6 3.0-13.0 % Eosinophils (%) (Auto) 2.8 0.0-8.0 % Basophils (%) (Auto) 0.3 0.0-5.0 % Neutrophils # (Auto) 4.0 1.8-7.7 K/uL Lymphocytes # (Auto) 1.2 1.0-4.8 K/uL Monocytes # (Auto) 0.7 0.1-1.0 K/uL Eosinophils # (Auto) 0.17 0.00-0.70 K/uL Basophils # (Auto) 0.02 0.00-0.20 K/uL Absolute Immature Granulocyte (auto 0.01 0-1 K/uL Nucleated Red Blood Cells 0.0 0.0-0.19 % Chemistry Labs: Test 03/01/25 06:45 Range/Units Sodium Level 144 136-145 mmol/L Potassium Level 3.4 L 3.5-5.1 mmol/L Chloride Level 107 101-111 mmol/L Carbon Dioxide Level 27 21-32 mmol/L Blood Urea Nitrogen 10 7-18 mg/dL Creatinine 0.8 0.5-1.0 mg/dL Glomerular Filtration Rate Calc 75 >90 mL/min Random Glucose 100 70-105 mg/dL Lactic Acid Level 1.3 0.8-2.5 mmol/L Total Calcium 8.5 8.5-10.1 mg/dL Magnesium Level 1.90 1.80-2.40 mg/dL Total Bilirubin 0.5 0.2-1.0 mg/dL Aspartate Amino Transf (AST/SGOT) 25 10-37 U/L Alanine Aminotransferase (ALT/SGPT) 24 12-78 U/L Alkaline Phosphatase 126 50-136 U/L Total Protein 6.8 6.0-8.3 g/dL Albumin 3.1 L 3.5-5.0 g/dL DIAGNOSTICS / RADIOLOGY RESULTS: [ ] PLAN Admit to [place] tele Consult cardiology for syncope 2D echo performed serial trop - stable. cardiac monitoring, no dysrhythmias reported D-Dimer elevated DVT and PE negative CT head orthostatic VS carotid US Urine culture Rocephin 2 grams q 24 hr x 10 days cardiology consult. one to one sitter NEURO: Minimize central acting medications as possible. Maintain fall precautions, adequate lighting during the day PULMONARY: Supplemental 02 as needed. Maintain aspiration precautions at all times CARDIOVASCULAR: Follow hemodynamics. Vital signs per facility protocol GI & NUTRITION: Continue with nutritional support. Continue stool softeners and laxatives as needed. KIDNEYS & ELECTROLYTES: Strict monitoring of intake, output and overall fluid balance. Avoid nephrotoxic medications to the extent possible. Medications to be dosed according to renal function. Monitor electrolytes and replace as needed ENDOCRINE: Maintain blood glucose between 100-180 at all times. Hypoglycemia protocol in place INFECTIOUS DISEASE: Trend temperature, WBC and procalcitonin level Follow cultures, deescalate antibiotics as soon as possible. Panculture if new onset fever ONCOLOGY/HEMATOLOGY/COAGULATION: Monitor for s/s of bleeding Monitor hemoglobin, coagulation studies as needed SKIN: Pressure ulcer prevention per facility protocol Specialty mattress ORTHO/REHAB: Continue PT/OT Prophylaxis: Continue GI and DVT prophylaxis Code Status: Full Resuscitation Disposition: TBD Other: Total patient care time exceeds 35 minutes excluding all procedures. [facility] Mar 01, 2025 18:38
--- NOTE | 2025-03-01 21:05 | NUR ---
MEDS PT IS COOPERATIVE AT THIS TIME. PT IS DRESSED WITH HER OWN CLOTHES WITH HER SHOES ON. CHANGED PT'S SHIRT TO HOSPITAL GOWN. FIXED TELE MONITOR. RE-INSERTED PIV G20 TO RT HAND, TOLERATED WELL. WRAPPED WITH KERLIX TO SECURE. SHIFT ASSESSMENT DONE, PLEASE REFER TO CHART. DUE MEDS ADMINISTERED, TOLERATED WELL. ENCOURAGED TO SLEEP. CALL LIGHT WITHIN REACH. BED ALARM ACTIVATED. SITTER KEEPING CLOSE WATCH.
--- NOTE | 2025-03-01 23:16 | PN ---
CARDIOLOGY Reason for consult: Elevated troponin HPI/story at presentation: This is a pleasant 79-year-old female with past medical history who presented with complaints of a syncopal spell, found by family. Cardiology consulted because of syncope as well as elevated troponin at presentation. Echo was normal Past medical history: See below Allergies, Meds See chart Review of systems Review of Systems Constitutional: Negative for chills and fever. HENT: Negative for ear discharge and ear pain. Eyes: Negative for photophobia and discharge. Respiratory: Negative for cough, sputum production and stridor. Cardiovascular: Negative for chest pain and palpitations. Gastrointestinal: Negative for diarrhea and vomiting. Genitourinary: Negative for frequency. Musculoskeletal: Negative for myalgias. Skin: Negative for rash. Neurological: Negative for focal weakness and seizures. Endo/Heme/Allergies: Negative for polydipsia. Psychiatric/Behavioral: Negative for hallucinations. Vitals see chart PHYSICAL EXAMINATION GENERAL: The patient is CONFUSED, 02/27/2025 HEENT: Nonicteric sclerae, non traumatic HEART: Regular rate and rhythm with no murmurs LUNGS: Clear to auscultation bilaterally ABDOMEN: No acute issues, non tender GENITAL, RECTAL: deferred SKIN: No rash NEUROLOGIC: NFND EXTREMITIES: No edema ASSESSMENT ELEVATED TROPONIN On presentation Troponin greater than 300 Unable to get history from patient's given poor mental status SYNCOPE Presentation, seen by family, Patient stopped over Echocardiogram, normal, 02/2025 Orthostatic vitals, 02/2025 DEMENTIA chronic CORE MEASURES pending OTHER MEDICAL PROBLEMS Reviewed PLAN 02/27/2025 patient with syncope presentation, poor historian, echo was normal, echo with orthostatic vitals have been ordered and pending. Will consider monitor/loop recorder discharge depending on what she will be able to tolerate given underlying dementia to assess for possible rhythm issues as possible source of symptoms. No family at bedside at this time, has a sitter. Advanced imaging, not a good candidate for ischemic evaluation at this time. Seen and examined 02/27/2025 at around 8 p.m. 02/28/25 remains confused, no chest pain, will address plan of care with family, likely conservative management given comorbidities seen and examined 02/28/25 at around 8 PM 03/01/2025 patient has been having issues with recurrent at bedtime elevated troponins in similar situations per family, underlying urinary tract infection as the possible differential. Troponins are nontrending, echocardiogram was normal. Patient also apparently, has been issues with chest pain occasionally at home although, given underlying dementia, this is a difficult history to elicit. Also, not a good candidate for long-term monitoring and may require loop recorder implantation if rhythm issues that are potentially contributing to her symptoms/syncopal spells need to be addressed. Family will discuss and likely leaning towards conservative measures but have not made a final decision yet. Seen and examined 03/01/2025 at around 8 PM. ATTESTATION I was involved substantially in the care of this patient Number and complexity of problems addressed: 1 acute illness with systemic features Amount and or complexity of data Review of prior external note(s) from each unique source: 2+ Ordering of each unique test : 0 Review of the result(s) of each unique test: 2+ Assessment requiring an independent historian(s): No Independent interpretation of test performed by another MD/QHCP/appropriate source (not separately reported) : No Discussion of management or test interpretation with external MD/QHCP/appropriate source (not separately reported) : No Risk status (cardiac, billing related): Moderate Vitals/Labs Vital Signs Date Time Temp Pulse Resp B/P (MAP) Pulse Ox O2 Delivery O2 Flow Rate FiO2 03/01/25 21:05 94 Room Air* 0 21 03/01/25 16:24 98.1 65 18 158/49 Laboratory Tests 03/01/25 06:45 Medications Current Medications Acetaminophen 650 mg Q4H PRN PO Last administered on 02/28/25at 22:53; Start 02/26/25 at 15:30; Stop 03/28/25 at 15:29 Ondansetron HCl 4 mg Q6H PRN IV; Start 02/26/25 at 15:30; Stop 03/28/25 at 15:29 Famotidine 20 mg Q48H PO Last administered on 02/28/25at 21:31; Start 02/26/25 at 21:00; Stop 03/28/25 at 20:59 Enoxaparin Sodium 40 mg DAILY SQ Last administered on 02/28/25at 07:59; Start 02/27/25 at 09:00; Stop 03/29/25 at 08:59 Ceftriaxone Sodium 2 gm Q24H IVPB Last administered on 03/01/25at 17:06; Start 02/26/25 at 15:30; Stop 03/08/25 at 15:29 Sodium Chloride 1,000 ml @ 75 mls/hr [id number] IV Last administered on 02/27/25at 05:20; Start 02/26/25 at 15:30; Stop 02/27/25 at 15:29; Status DC Aspirin 81 mg ONCE ONCE PO Last administered on 02/26/25at 22:35; Start 02/26/25 at 22:00; Stop 02/26/25 at 22:01; Status DC Aspirin 81 mg DAILY PO Last administered on 02/28/25at 07:58; Start 02/27/25 at 09:00; Stop 03/29/25 at 08:59 Atorvastatin Calcium 40 mg HS PO Last administered on 03/01/25at 21:01; Start 02/27/25 at 21:00; Stop 03/29/25 at 20:59 Atorvastatin Calcium 40 mg ONCE ONCE PO Last administered on 02/26/25at 22:35; Start 02/26/25 at 22:00; Stop 02/26/25 at 22:01; Status DC Melatonin 10 mg ONCE ONCE PO Last administered on 02/26/25at 22:35; Start 02/26/25 at 22:00; Stop 02/26/25 at 22:01; Status DC Iohexol 50 ml STK-MED ONCE IV; Start 02/26/25 at 23:50; Stop 02/26/25 at 23:50; Status DC Quetiapine Fumarate 50 mg HS PO Last administered on 03/01/25at 21:02; Start 02/28/25 at 21:00; Stop 03/30/25 at 20:59 Quetiapine Fumarate 25 mg ONCE ONCE PO Last administered on 02/27/25at 22:34; Start 02/27/25 at 22:00; Stop 02/27/25 at 22:01; Status DC Potassium Chloride 20 meq DAILY PO Last administered on 03/01/25at 23:15; Start 03/01/25 at 09:00; Stop 03/31/25 at 08:59 MARIFER PHILLIPS MD Mar 01, 2025 23:16
[2025-03-02] VITALS: BP 143/76; PULSE 63; RESP 16; TEMP 98.1
[2025-03-02 04:00] VITALS: BP 128/74; PULSE 67; RESP 16; TEMP 97.5
[2025-03-02 04:45] LABS: NUCLEATED RED BLOOD CELLS 0.0 % (0.0-0.19); PLATELET COUNT (AUTO) 220.0 K/uL (130-400); RED BLOOD CELL COUNT(AUTO) 3.73 MIL/uL (4.00-5.50); RED CELL DISTRIBUTION WIDTH 12.8 % (11.0-15.5); WHITE BLOOD COUNT (AUTO) 7.1 K/uL (4.8-10.8)
[2025-03-02 05:01] LABS: ASPARTATE AMINOTRANSFERASE 19.0 U/L (10-37); CREATININE 0.7 mg/dL (0.5-1.0); GLOMERULAR FILTR. RATE CALC 88.0 mL/min (>90); GLUCOSE,RANDOM 93.0 mg/dL (70-105); SODIUM SERUM 140.0 mmol/L (136-145); TOTAL PROTEIN, SERUM 6.7 g/dL (6.0-8.3); UREA NITROGEN, BLOOD 12.0 mg/dL (7-18)
--- NOTE | 2025-03-02 05:37 | NUR ---
ROUNDS PT SLEPT AT INTERVALS DURING THE SHIFT. STILL WITH CONFUSION WHEN AWAKE. NO DISTRESS AT THIS TIME. PT IS ASLEEP WITH RESPIRATIONS EVEN AND UNLABORED. KEPT UNDISTURBED FOR NOW. SITTER KEEPING CLOSE WATCH ON PT.
[2025-03-02 08:00] VITALS: BP 143/77; PULSE 73; RESP 20; TEMP 97.6; O2SAT 97
[2025-03-02 12:00] VITALS: BP 143/77; PULSE 73; RESP 20; TEMP 97.6
--- NOTE | 2025-03-02 16:08 | DS ---
[facility] DISCHARGE SUMMARY Date Patient Seen: Mar 02, 2025 Time of Visit: 16:08 Supervising Physician: Dr. Philipp Garcia Primary Care Physician: Nikki Bucio MD Outpatient Specialists: none Inpatient Consults: Tammy Cedeno (Cardiology) PROBLEM LIST: syncope NSTEMI Vertigo Acute complicated cystitis urine culture positive for E coli Dementia HOSPITAL COURSE: Patient was admitted to the hospital clinically worked up for syncope determined to have a non-STEMI and acute complicated cystitis, urine culture positive for E coli. Non-STEMI 2D echo results LV EF greater than 65%. Additionally, Cardiology requested additional diagnostic study left heart catheterization patient's family declined since the patient has advanced form of dementia they evaluated risks and benefits and at this time declined. We will follow up with Cardiology as an outpatient for outpatient management. Diagnostic tests completed were US carotid duplex bilateral results negative, CT of the head without contrast results no acute infarct and chest x-ray indicated no acute cardiovascular conditions or infection. Patient has been treated with IV antibiotics for acute complicated cystitis we will be transitioned to an oral antibiotic. At this time the patient is medically stable can be discharged home and follow up with primary care provider, Dr. Nikki Tapia. HPI (per admitting provider) THis is a79yr old female with past medical HX pertinent for dementia who presented to the ED for evaluation of syncope. Per pts daughter pt has been having periods of dizziness in the last 2 weeks 2 major episodes. This morning pts daughter reports Mrs Garcia had her am meds which included 1 Seroquel 25mg po and shortly after that she complained of some dizziness. Then daughter reports she found her slumped over and passed out. Daughter also reports pt was clammy and diaphoretic. This prompted her to bring her to the ED for evaluation. Pt hemodynamically stable. afebrile and saturating 97% at RA. Neutrophils 78.3, chemistry with troponin of 365 CK 185. CHest XR: No acute cardiopulmonary pathology is evident. On assessment pt is awake alert pleasantly confused. Pt denies chest pain, palpitations or SOB. The patient was treated for the following problems: ACTIVE PROBLEM LIST FOR THE HOSPITALIZATION: syncope NSTEMI Acute complicated cystitis, urine culture positive for E coli. CHRONIC PROBLEMS: continue previous management per PCP unless otherwise indicated Dementia Vertigo SCIENTIFIC MANAGER FINDINGS/RECOMMENDATIONS: [ ] PROCEDURES: as mentioned above REASON: VALVULOPATHY ? PUL HTN? ORDERING PHYSICIAN: RIGOBERTO ENCISO PROCEDURE: ECHO CMP - ECHO 2-D COMPLETE APPROVED REPORT EXAM: Two-dimensional and M-mode echocardiogram with Doppler and color Doppler. INDICATION ICD: Assess for valvulopathy, rule out pulmonary hypertension 2D Dimensions RVDd 3.9 cm LVEF(%) 62.5 (>50%) LVED Vol(simp.) 81.0 mL IVSd 1.2 (0.7-1.1cm) FS(%) 33 % LVES Vol(simp.) 26.0 mL LVDd 4.3 (3.8-5.6cm) LA (2D) 3.3 (1.6-4.0cm) LVEF(%, simp.) 68 % PWd 1.0 (0.7-1.1cm) Ao Root(2D) 3.0 (2.0-3.7cm) LA ESV INDEX (BP) 35.53 mL/m2 IVSs 1.2 cm LVOT diam 2.3 (1.8-2.4cm) LVDs 2.9 (2.5-4.0cm) IVC diam 2.0 cm PWs 1.2 cm Deformation Strain Apical 4 -22.9 % Apical 2 -24.5 % Apical 3 -21.6 % Global Strain -23.0 % M-Mode Dimensions EPSS 0.4 cm LA (MM) 3.7 (1.6-4.0cm) Ao Root(MM) 3.4 (2.0-3.7cm) Aortic Valve AoV Vmax 2.1 m/s Ao Peak GR 18.4 mmHg LVOT Vmax 1.5 m/s AoV VTI 0.5 m Ao Mean GR 11.3 mmHg LVOT VTI 0.24 m TORI (VMAX) 2.89 cm2 Al P1/2T 512 ms TORI (VTI) 2.1 cm2 Mitral Valve MV E Vmax 61.3 cm/s DECEL Time 175 ms MV A Vmax 74.1 cm/s P 1/2 T 37 ms E/A ratio 0.8 MVA (PHT) 6.0 cm2 TDI E/E' Medial 11.4 Medial E' Peak V 5.40 cm/s Pulmonary Valve PV Vmax 1.0 m/s PV Mean GR 2.6 mmHg PV Peak GR 4.2 mmHg Tricuspid Valve TR Vmax 2.0 m/s RAP (EST) 3 mmHg RVSP 19.4 mmHg TR Peak GR 16.4 mmHg Left Ventricle The left ventricle is normal size. GLS -23.0% There is normal left ventricular wall thickness. The LVEF is > 65%. The left ventricular diastolic function is normal. Right Ventricle The right ventricle is normal size. The right ventricular systolic function is normal. Atria The left atrium size is normal. The right atrium size is normal. Aortic Valve Aortic valve is trileaflet and opens well. Trace aortic regurgitation is present. There is no aortic valvular stenosis. Mitral Valve The mitral valve is normal in structure. There is trace of mitral valve regurgitation noted. There is no mitral valve stenosis. Tricuspid Valve The tricuspid valve is normal in structure. There is trace of tricuspid valve regurgitation noted. Estimated pulmonary pressures are normal. Pulmonic Valve The pulmonary valve is normal in structure. There is no pulmonic valvular regurgitation. Great Vessels The aortic root is normal in size. The IVC is normal in size and collapses >50% with inspiration. Pericardium There is no pericardial effusion. Other Information Quality : Adequate Rhythm : NSR Conclusion The LVEF is > 65%. The left ventricular diastolic function is normal. Trace aortic regurgitation. Estimated pulmonary pressures are normal. DICTATED BY: JACQUELINE ODOM DO DATE: 02/27/25905 ELECTRONICALLY SIGNED BY: JACQUELINE ODOM DO DATE: 02/27/251958 REASON: elevated d dimer ORDERING PHYSICIAN: RIGOBERTO ENCISOTequila PROCEDURE: VENOUS ANGIE - US VENOUS DOPPLER BILATERAL EXAM: BILATERAL LOWER EXTREMITY VENOUS DOPPLER ULTRASOUND CLINICAL INFORMATION: Elevated D-dimer. TECHNIQUE: Grayscale, color Doppler, and spectral Doppler evaluation of the bilateral common femoral, femoral, profunda femoris, popliteal, posterior tibial, and peroneal veins with compression maneuvers and augmentation where feasible; great and small saphenous veins assessed as appropriate. COMPARISON: None provided. FINDINGS: DEEP VEINS (BILATERAL): Common femoral, femoral, profunda femoris, popliteal, posterior tibial, and peroneal veins are patent with complete compressibility where assessable and demonstrate normal color fill and phasic/spectral flow; no intraluminal thrombus is identified. SUPERFICIAL VEINS (BILATERAL): Great and small saphenous veins are patent and compressible without thrombus. SOFT TISSUES: No focal fluid collection is identified. IMPRESSION: * No evidence of deep venous thrombosis in either lower extremity on today???s examination. /[place] DICTATED BY: JEANNE JEROME MD DATE: 02/27/25199 ELECTRONICALLY SIGNED BY: JEANNE JEROME MD DATE: 02/27/25199 REASON: SYNCOPE ORDERING PHYSICIAN: RIGOBERTO ENCISO PROCEDURE: CAROTID - US CAROTID DUPLEX EXAM: Ultrasound Duplex of the Bilateral Carotid and Vertebral Arteries. CLINICAL HISTORY: Syncope. TECHNIQUE: Real-time ultrasound of the bilateral carotid and vertebral arteries was performed using 2D barnard-scale, color Doppler, and spectral waveform analysis. COMPARISON: None provided. FINDINGS: RIGHT COMMON CAROTID ARTERY (CCA): Peak systolic velocity (PSV): 67 cm/s. Few calcified plaques are seen in the distal CCA without significant luminal narrowing or flow disturbance. RIGHT INTERNAL CAROTID ARTERY (ICA): PSV: 96 cm/s. ICA/CCA ratio: 1.4. No occlusion or hemodynamically significant stenosis. RIGHT EXTERNAL CAROTID ARTERY (ECA): PSV: 106 cm/s. Normal flow pattern. RIGHT VERTEBRAL ARTERY: PSV: 44 cm/s. Antegrade flow. LEFT COMMON CAROTID ARTERY (CCA): PSV: 57 cm/s. Normal wall appearance. No significant stenosis. LEFT INTERNAL CAROTID ARTERY (ICA): PSV: 80 cm/s. ICA/CCA ratio: 1.4. No occlusion or hemodynamically significant stenosis. LEFT EXTERNAL CAROTID ARTERY (ECA): PSV: 99 cm/s. Normal flow pattern. LEFT VERTEBRAL ARTERY: PSV: 64 cm/s. Antegrade flow. SOFT TISSUES: No incidental abnormality. IMPRESSION: 1. Mild atherosclerotic change with few calcified plaques in the distal right common carotid artery, without hemodynamically significant stenosis. 2. Normal flow velocities in bilateral internal and external carotid arteries. /[place] DICTATED BY: ELDA COE Jr., MD DATE: 02/26/251749 ELECTRONICALLY SIGNED BY: ELDA COE Jr., MD DATE: 02/26/251749 GEORGE: SYNCOPE ORDERING PHYSICIAN: RIGOBERTO ENCISO PROCEDURE: HEAD WO - CT HEAD/BRAIN W/O CONTRAST EXAM: CT Head Without IV contrast. CLINICAL HISTORY: SYNCOPE. TECHNIQUE: Axial computed tomography images of the head/brain without intravenous contrast. COMPARISON: None provided. FINDINGS: BRAIN: No evidence of acute hemorrhage. No mass lesion. No CT evidence for acute territorial infarct. No midline shift or extra-axial collections. Diffuse cerebral volume loss in the form of prominent cortical sulci and the ventricular system. Chronic small vessel ischemic changes in the form of diffuse bilateral periventricular hypodensities. Gliotic area in the left temporal region. VENTRICLES: No hydrocephalus. ORBITS: The orbits are unremarkable. SINUSES AND MASTOIDS: The paranasal sinuses and mastoid air cells are clear. BONES: No fracture. SOFT TISSUES: Unremarkable. IMPRESSION: No acute intracranial abnormality. Diffuse cerebral volume loss with chronic small vessel ischemic changes and gliotic area in the left temporal region. Recommend MRI brain for further evaluation if clinically warranted. /[place] DICTATED BY: ELDA COE Jr., MD DATE: 02/26/252151 ELECTRONICALLY SIGNED BY: ELDA COE Jr., MD DATE: 02/26/252151 DISCHARGE MEDICATIONS: Cefdinir 300 mg p.o. b.i.d. for seven days, 14 tablets. Pt hemodynamically stable and afebrile at time of discharge. PCP notified of patients admission, hospital course and discharge. PHYSICAL EXAM: GENERAL: alert, weak, awake oriented x 3 HEENT: EOMI, Sclera non icteric, moist mucosa NECK: Supple, no JVD, trachea midline LUNGS: Clear breath sounds bilaterally. No wheezes HEART: Regular rate and rhythm. Normal S1 and S2, without murmurs ABD: Abdomen soft, nontender. Bowel sounds present EXT: No clubbing cyanosis or edema NEURO: Alert and oriented to person, follows commands FOLLOW-UP: Dr. Nikki Tapia. Follow-up with PCP in 2-3 days RECOMMENDATIONS: See Discharge Instructions This case was seen and discussed with my supervising physician. More than 50 minutes spent on discharge process, including evaluation of the patient, discussion with nursing staff, medication reconciliation and follow-up appointments EL[facility]ICIO [facility] Mar 02, 2025 16:08
--- NOTE | 2025-03-02 17:11 | PN ---
CARDIOLOGY Reason for consult: Elevated troponin HPI/story at presentation: This is a pleasant 79-year-old female with past medical history who presented with complaints of a syncopal spell, found by family. Cardiology consulted because of syncope as well as elevated troponin at presentation. Echo was normal Past medical history: See below Allergies, Meds See chart Review of systems Review of Systems Constitutional: Negative for chills and fever. HENT: Negative for ear discharge and ear pain. Eyes: Negative for photophobia and discharge. Respiratory: Negative for cough, sputum production and stridor. Cardiovascular: Negative for chest pain and palpitations. Gastrointestinal: Negative for diarrhea and vomiting. Genitourinary: Negative for frequency. Musculoskeletal: Negative for myalgias. Skin: Negative for rash. Neurological: Negative for focal weakness and seizures. Endo/Heme/Allergies: Negative for polydipsia. Psychiatric/Behavioral: Negative for hallucinations. Vitals see chart PHYSICAL EXAMINATION GENERAL: The patient is CONFUSED, 02/27/2025 HEENT: Nonicteric sclerae, non traumatic HEART: Regular rate and rhythm with no murmurs LUNGS: Clear to auscultation bilaterally ABDOMEN: No acute issues, non tender GENITAL, RECTAL: deferred SKIN: No rash NEUROLOGIC: NFND EXTREMITIES: No edema ASSESSMENT ELEVATED TROPONIN On presentation Troponin greater than 300 Unable to get history from patient's given poor mental status SYNCOPE Presentation, seen by family, Patient stopped over Echocardiogram, normal, 02/2025 Orthostatic vitals, 02/2025 DEMENTIA chronic CORE MEASURES pending OTHER MEDICAL PROBLEMS Reviewed PLAN 02/27/2025 patient with syncope presentation, poor historian, echo was normal, echo with orthostatic vitals have been ordered and pending. Will consider monitor/loop recorder discharge depending on what she will be able to tolerate given underlying dementia to assess for possible rhythm issues as possible source of symptoms. No family at bedside at this time, has a sitter. Advanced imaging, not a good candidate for ischemic evaluation at this time. Seen and examined 02/27/2025 at around 8 p.m. 02/28/25 remains confused, no chest pain, will address plan of care with family, likely conservative management given comorbidities seen and examined 02/28/25 at around 8 PM 03/01/2025 patient has been having issues with recurrent at bedtime elevated troponins in similar situations per family, underlying urinary tract infection as the possible differential. Troponins are nontrending, echocardiogram was normal. Patient also apparently, has been issues with chest pain occasionally at home although, given underlying dementia, this is a difficult history to elicit. Also, not a good candidate for long-term monitoring and may require loop recorder implantation if rhythm issues that are potentially contributing to her symptoms/syncopal spells need to be addressed. Family will discuss and likely leaning towards conservative measures but have not made a final decision yet. Seen and examined 03/01/2025 at around 8 PM. 03/02/2025 Seen at bedside with family present Remains on 1:1 sitter Patients family members have decided to continue with conservative management and no invasive testing Recommend to follow up in 1-2 weeks Cleared for discharge from cardiology standpoint. ATTESTATION Case Discussed with Dr. Bahena Vitals/Labs Vital Signs Date Time Temp Pulse Resp B/P (MAP) Pulse Ox O2 Delivery O2 Flow Rate FiO2 03/02/25 12:00 97.5 73 20 143/77 97 Room Air 03/02/25 08:00 0 21 Laboratory Tests 03/02/25 04:31 Medications Current Medications Acetaminophen 650 mg Q4H PRN PO Last administered on 02/28/25at 22:53; Start 02/26/25 at 15:30; Stop 03/28/25 at 15:29 Ondansetron HCl 4 mg Q6H PRN IV; Start 02/26/25 at 15:30; Stop 03/28/25 at 15:29 Famotidine 20 mg Q48H PO Last administered on 02/28/25at 21:31; Start 02/26/25 at 21:00; Stop 03/28/25 at 20:59 Enoxaparin Sodium 40 mg DAILY SQ Last administered on 03/02/25at 09:36; Start 02/27/25 at 09:00; Stop 03/29/25 at 08:59 Ceftriaxone Sodium 2 gm Q24H IVPB Last administered on 03/01/25at 17:06; Start 02/26/25 at 15:30; Stop 03/08/25 at 15:29 Sodium Chloride 1,000 ml @ 75 mls/hr [id number] IV Last administered on 02/27/25at 05:20; Start 02/26/25 at 15:30; Stop 02/27/25 at 15:29; Status DC Aspirin 81 mg ONCE ONCE PO Last administered on 02/26/25at 22:35; Start 02/26/25 at 22:00; Stop 02/26/25 at 22:01; Status DC Aspirin 81 mg DAILY PO Last administered on 03/02/25at 09:35; Start 02/27/25 at 09:00; Stop 03/29/25 at 08:59 Atorvastatin Calcium 40 mg HS PO Last administered on 03/01/25at 21:01; Start 02/27/25 at 21:00; Stop 03/29/25 at 20:59 Atorvastatin Calcium 40 mg ONCE ONCE PO Last administered on 02/26/25at 22:35; Start 02/26/25 at 22:00; Stop 02/26/25 at 22:01; Status DC Melatonin 10 mg ONCE ONCE PO Last administered on 02/26/25at 22:35; Start 02/26/25 at 22:00; Stop 02/26/25 at 22:01; Status DC Iohexol 50 ml STK-MED ONCE IV; Start 02/26/25 at 23:50; Stop 02/26/25 at 23:50; Status DC Quetiapine Fumarate 50 mg HS PO Last administered on 03/01/25at 21:02; Start 02/28/25 at 21:00; Stop 03/30/25 at 20:59 Quetiapine Fumarate 25 mg ONCE ONCE PO Last administered on 02/27/25at 22:34; Start 02/27/25 at 22:00; Stop 02/27/25 at 22:01; Status DC Potassium Chloride 20 meq DAILY PO Last administered on 03/02/25at 09:35; Start 03/01/25 at 09:00; Stop 03/31/25 at 08:59 [facility] Mar 02, 2025 17:11
== END 2025-03-02 17:35 | disposition home or self-care (01) | DRG 281 ==
LOC: EDH 09:48 → EDHIP 15:16 → 3AH 02-27 19:18 → 3BH 02-28 18:55
PROVIDERS: ADMIT Internal Medicine Critical Care Medicine; ATTEND Internal Medicine Critical Care Medicine
DX: I21.4 Non-ST elevation (NSTEMI) myocardial infarction (principal); N30.00 Acute cystitis without hematuria; B96.20 Unspecified Escherichia coli [E. coli] as the cause of diseases classified elsewhere; F02.80 Dementia in other diseases classified elsewhere, unspecified severity, without behavioral disturbance, psychotic disturbance, mood disturbance, and anxiety; G30.9 Alzheimer's disease, unspecified; Z85.3 Personal history of malignant neoplasm of breast; Z79.899 Other long term (current) drug therapy
CPT/HCPCS: 36415; 70450; 71045; 71270; 80048; 80053; 81001; 82550; 83605; 83735; 83880; 84484; 85025; 85027; 85378; 87040; 87086; 87186; 93005; 93306; 93356; 93880; 93970; 96374; 99285; G0378; J0696; J1650; Q9967